=== PATIENT | female | born 1945 | race Caucasian/White ===

== ENCOUNTER 2016-12-02 08:30 | Outpatient (CLI) | payer MEDICARE | END 2016-12-02 08:31 | disposition home or self-care (01) | DX: E78.2 Mixed hyperlipidemia (principal) ==

== ENCOUNTER 2017-05-26 07:13 | Outpatient (CLI) | payer MEDICARE ==
--- NOTE | 2017-05-27 12:56 | Mammography Report ---
DIGITAL SCREENING MAMMOGRAM: 05/26/2017 CLINICAL INDICATION: A 71-year-old with family history of breast cancer, history of benign cyst exci roney for screening. COMPARISON: 04/2016, 03/2015, 08/2013, 02/2012 TECHNIQUE: Routine CC and MLO projections were obtained of the breasts as well as bilateral laterall y exaggerated craniocaudal views. FINDINGS: The breasts demonstrate heterogeneously dense fibroglandular parenchyma bilaterally. Punc campos, typically benign calcifications are present. Postoperative changes in the left breast are stab le. No suspicious masses, clustered microcalcifications, or regions of architectural distortion are identified. IMPRESSION: BENIGN FINDINGS. RECOMMENDATION: Routine annual screening unless otherwise clinically indicated. BIRADS CATEGORY 2 - BENIGN FINDINGS. STANDARD QUALIFYING STATEMENTS 1. This examination was reviewed with the aid of Computer-Aided Detection (CAD). 2. A negative or benign imaging report should not delay biopsy if clinically suspicious findings are present. Consider surgical consultation if warranted. More than 5% of cancers are not identified by i maging. 3. Dense breasts may obscure an underlying neoplasm. JOB #: [id number] EXT JOB #:[id number]
== END 2017-05-26 07:14 | disposition home or self-care (01) ==
LOC: DI 07:13
PROVIDERS: ATTEND Physician Assistant Medical
DX: Z12.31 Encounter for screening mammogram for malignant neoplasm of breast (principal); Z80.3 Family history of malignant neoplasm of breast
CPT/HCPCS: 77067

== ENCOUNTER 2017-09-13 08:24 | Outpatient (CLI) | payer MEDICARE | END 2017-09-13 08:25 | disposition critical access hospital (66) | LOC: EMS 08:24 | PROVIDERS: ATTEND Surgery | DX: R55 Syncope and collapse (principal) | CPT/HCPCS: A0425; A0429 ==

== ENCOUNTER 2017-09-13 08:40 | Emergency (ER) | payer MEDICARE ==
--- NOTE | 2017-09-13 09:31 | ED Physician Documentation ---
PD HPI SYNCOPE - Stated complaint Stated Complaint: SYNCOPE - Chief complaint Chief Complaint: General - History obtained from History obtained from: Patient - History of Present Illness Witnessed: Unwitnessed Timing - onset: Today Duration: Seconds Preceding symptoms: Light headed, Generalized weakness Contributing factors: Just stood up Injury occurred: None Similar symptoms before: No diagnosis Recently seen: Not recently seen - Additional information Additional information: Previously healthy 72-year-old female took some Aleve p.m. last night when she went to bed and she got up this morning To go to the bathroom and she felt lightheaded dizzy and had a syncopal episode in the bathroom. She called 911 and they asked her to go to her open her door and when she went to do this she had a second syncopal episode. She did not injure herself in either episode. She did not feel ill this morning when she awoke she has had similar episodes in the mornings without syncope but with some lightheadedness. She usually drinks water and tea. Review of Systems Constitutional: reports: Fatigue. denies: Fever, Chills Eyes: denies: Decreased vision Ears: denies: Ear pain Nose: denies: Rhinorrhea / runny nose, Congestion Throat: denies: Sore throat Cardiac: denies: Chest pain / pressure, Palpitations Respiratory: denies: Dyspnea, Cough GI: denies: Abdominal Pain, Nausea, Vomiting, Constipation, Diarrhea : denies: Dysuria, Frequency Skin: denies: Rash Musculoskeletal: denies: Neck pain, Back pain, Extremity pain Neurologic: reports: Syncope. denies: Generalized weakness, Focal weakness, Numbness PD PAST MEDICAL HISTORY - Past Medical History Cardiovascular: High cholesterol Neuro: None Endocrine/Autoimmune: None Psych: None Musculoskeletal: Osteoarthritis - Past Surgical History Ortho: Hip replacement HEENT: Cataracts - Present Medications Home Medications: Ambulatory Orders Medication Instructions Recorded Confirmed Atorvastatin Calcium [Lipitor] 20 mg PO DAILY 10/29/13 09/13/17 - Allergies Allergies/Adverse Reactions: Allergies Allergy/AdvReac Type Severity Reaction Status Date / Time No Known Drug Allergies Allergy Verified 09/13/17 08:45 - Social History Does the pt smoke?: No Smoking Status: Never smoker Does the pt drink ETOH?: Yes Does the pt have substance abuse?: No - POLST Patient has POLST: No PD ED PE NORMAL - Vitals Vital signs reviewed: Yes (Diastolic hypertension) - General General: Alert and oriented X 3, No acute distress, Well developed/nourished - HEENT HEENT: Atraumatic, PERRL, EOMI, Moist mucous membranes - Neck Neck: Supple, no meningeal sign, No bony TTP - Cardiac Cardiac: RRR, No murmur - Respiratory Respiratory: No respiratory distress, Clear bilaterally - Abdomen Abdomen: Soft, Non tender - Back Back: No CVA TTP, No spinal TTP - Derm Derm: Normal color, Warm and dry, No rash - Extremities Extremities: No deformity, No edema - Neuro Neuro: No motor deficit, No sensory deficit Eye Opening: Spontaneous Motor: Obeys Commands Verbal: Oriented GCS Score: 15 - Psych Psych: Normal mood, Normal affect Results - Vitals Vitals: Vital Signs - 24 hr 09/13/17 09/13/17 08:40 11:47 Temperature 35.3 C L Heart Rate 74 86 Respiratory 16 15 Rate Blood Pressure 105/88 H 145/82 H O2 Saturation 100 145 H Oxygen O2 Source [] Room air O2 Source [] Room air O2 Source Room air - EKG (time done) 0854 Rate: Rate (enter#) (62) Rhythm: NSR Other comments: Other comments (early transition) Compare to prior EKG: Old EKG unavailable Computer interpretation: Agree with computer - Labs Labs: Laboratory Tests 09/13/17 09/13/17 09/13/17 10:20 10:20 10:20 WBC 8.9 RBC 4.19 L Hgb 13.5 Hct 39.0 MCV 92.9 MCH 32.3 H MCHC 34.7 RDW 12.6 Plt Count 280 MPV 6.9 L Neut # 7.3 H Lymph # 1.0 L Harford # 0.4 Eos # 0.1 Baso # 0.0 Absolute Nucleated RBC 0.00 Nucleated RBC % 0.0 Sodium 135 Potassium 4.3 Chloride 98 L Carbon Dioxide 27 Anion Gap 10.0 BUN 18 Creatinine 0.7 Estimated GFR (MDRD) 82 L Glucose 133 H Calcium 9.5 Total Bilirubin 1.8 H AST 28 ALT 26 Alkaline Phosphatase 49 Troponin I < 0.04 Total Protein 6.8 Albumin 4.3 Globulin 2.5 Albumin/Globulin Ratio 1.7 Lipase 28 Urine Color Urine Clarity Urine pH Ur Specific Rea Urine Protein Urine Glucose (UA) Urine Ketones Urine Occult Blood Urine Nitrite Urine Bilirubin Urine Urobilinogen Ur Leukocyte Esterase Urine RBC Urine WBC Ur Squamous Epith Cells Urine Bacteria Ur Microscopic Review Urine Culture Comments 09/13/17 11:40 WBC RBC Hgb Hct MCV MCH MCHC RDW Plt Count MPV Neut # Lymph # Harford # Eos # Baso # Absolute Nucleated RBC Nucleated RBC % Sodium Potassium Chloride Carbon Dioxide Anion Gap BUN Creatinine Estimated GFR (MDRD) Glucose Calcium Total Bilirubin AST ALT Alkaline Phosphatase Troponin I Total Protein Albumin Globulin Albumin/Globulin Ratio Lipase Urine Color YELLOW Urine Clarity CLEAR Urine pH 7.0 Ur Specific Rea 1.010 Urine Protein NEGATIVE Urine Glucose (UA) NEGATIVE Urine Ketones NEGATIVE Urine Occult Blood TRACE-INTA Urine Nitrite NEGATIVE Urine Bilirubin NEGATIVE Urine Urobilinogen 0.2 (NORMAL) Ur Leukocyte Esterase TRACE H Urine RBC 0-5 Urine WBC 0-3 Ur Squamous Epith Cells MOD Squamous H Urine Bacteria Rare Ur Microscopic Review INDICATED Urine Culture Comments NOT INDICATED Procedures - IVC sono (time) 0935 Bedside IVC sono: IVC measures (cm) (1.12), IVC collapsed c insp (cm) (0.32), Dehydration (mild est 1 liter) PD MEDICAL DECISION MAKING - ED course Complexity details: reviewed results, re-evaluated patient, considered differential, d/w patient ED course: 72-year-old female with lightheaded dizziness with syncope 2 today is found to be dehydrated. She does recall that history of this frequently happening to her without syncope but with morning lightheadedness. She drinks about 4 glasses of water per day and a bit of tea as well. She is not drinking of fluids we discussed her water intake and having a glass of water at her bedside to drink before she gets out of bed in the morning. Here in the emergency department today she is administered a liter of saline feels much improved and normal. Laboratory studies are unremarkable. Departure - Departure Disposition: 01 Home, Self Care Clinical Impression: Dehydration Condition: Stable Instructions: ED Dehydration Follow-Up: Radha Deal PA-C [Primary Care Provider] -
[2017-09-13] MEDS ORDERED: SODIUM CHLORIDE 0.9% 1,000 ML IV ONE (09:40)
[2017-09-13 10:35] LABS: BASOPHILS % (AUTO) 0.2 %; EOSINOPHILS # (AUTO) 0.1 10^3/uL (0.0-0.7); EOSINOPHILS % (AUTO) 1.4 %; HGB - HEMOGLOBIN 13.5 g/dL (12.0-16.0); LYMPHOCYTES % (AUTO) 11.5 %; MEAN CORPUSCULAR HEMOGLOBIN 32.3 pg (27.0-31.0); MEAN CORPUSCULAR HGB CONC 34.7 g/dL (32.0-36.0); MEAN CORPUSCULAR VOLUME 92.9 fL (81.0-99.0); MEAN PLATELET VOLUME 6.9 fL (7.9-10.8); MONOCYTES # (AUTO) 0.4 10^3/uL (0.0-1.0); MONOCYTES % (AUTO) 4.4 %; NEUTROPHILS # (AUTO) 7.3 10^3/uL (1.5-6.6); NEUTROPHILS % (AUTO) 82.5 %; PLT - PLATELET COUNT 280 10^3/uL (130-450); RED BLOOD COUNT 4.19 10^6/uL (4.20-5.40); RED CELL DISTRIBUTION WIDTH 12.6 % (12.0-15.0); WHITE BLOOD COUNT 8.9 x10^3/uL (4.8-10.8)
[2017-09-13 11:19] LABS: ALBUMIN 4.3 g/dL (3.2-5.5); ALBUMIN/GLOBULIN RATIO 1.7 (1.0-2.2); BILIRUBIN,TOTAL 1.8 mg/dL (0.2-1.0); CALCIUM 9.5 mg/dL (8.5-10.3); CREATININE 0.7 mg/dL (0.4-1.0); TOTAL PROTEIN 6.8 g/dL (6.7-8.2)
[2017-09-13 11:53] LABS: BILIRUBIN,URINE NEGATIVE (NEGATIVE); GLUCOSE, URINE (UA) NEGATIVE (NEGATIVE); KETONES,URINE (UA) NEGATIVE (NEGATIVE); LEUKOCYTE ESTERASE, URINE TRACE (NEGATIVE); NITRITE,URINE NEGATIVE (NEGATIVE); OCCULT BLOOD,URINE TRACE-INTA (NEGATIVE); PROTEIN,URINE NEGATIVE (NEGATIVE); UROBILINOGEN,URINE 0.2 (NORMAL) E.U./dL (NORMAL)
[2017-09-13 11:57] LABS: CLARITY,URINE CLEAR (CLEAR)
[2017-09-13 12:16] LABS: BACTERIA,URINE Rare /HPF (None Seen); RBC,URINE 0-5 /HPF (0-5); SQUAMOUS EPITHELIAL CELL,UR MOD Squamous (<= Few)
[2017-09-13 12:57] VITALS: BP 150/76
== END 2017-09-13 12:57 | disposition home or self-care (01) ==
LOC: EDUNIT# → ED 08:40
DX: E86.0 Dehydration (principal); E78.00 Pure hypercholesterolemia, unspecified; M19.90 Unspecified osteoarthritis, unspecified site
CPT/HCPCS: 36415; 80053; 81001; 81003; 83690; 84484; 85025; 87086; 93005; 99284

== ENCOUNTER 2017-09-22 12:54 | Outpatient (CLI) | payer MEDICARE | END 2017-09-22 12:55 | disposition home or self-care (01) | LOC: DI 12:54 | PROVIDERS: ATTEND Physician Assistant Medical | DX: R55 Syncope and collapse (principal); I77.810 Thoracic aortic ectasia | CPT/HCPCS: 93306 ==

== ENCOUNTER 2018-06-12 09:04 | Outpatient (CLI) | payer MEDICARE ==
--- NOTE | 2018-06-14 10:25 | Mammography Report ---
Reason: BILAT SCREEN w AUREA Procedure Date: 06/12/2018 Accession Number: [id number] / [id number] Procedure: AJ - Screening Mammo w/Aurea CPT Code: FULL RESULT: EXAM: Screening Mammo w/Aurea DATE: 06/12/2018 9:38 AM CLINICAL HISTORY: BILAT SCREEN w AUREA TECHNIQUE: Bilateral CC and MLO breast views COMPARISON: Mammogram 05/26/2017 FINDINGS: The breast parenchyma is extremely dense, which may limit the sensitivity of mammography. There are benign-appearing calcifications. No dominant mass, architectural distortion, or concerning cluster of microcalcifications is seen. IMPRESSION: BI-RADS Category 2. Benign findings. Recommend annual screening mammogram. STANDARD QUALIFYING STATEMENTS: 1. This examination was not reviewed with the aid of Computer-Aided Detection (CAD). 2. A negative or benign imaging report should not delay biopsy if clinically suspicious findings are present. Consider surgical consultation if warrented. More than 5% of cancers are not identified by imaging. 3. Dense breasts may obscure an underlying neoplasm. 4. This examination was reviewed with the aid of 3D breast imaging (tomosynthesis).
== END 2018-06-12 09:05 | disposition home or self-care (01) ==
LOC: DI 09:04
DX: Z12.31 Encounter for screening mammogram for malignant neoplasm of breast (principal)
CPT/HCPCS: 77063; 77067

== ENCOUNTER 2018-07-04 08:40 | Outpatient (CLI) | payer MEDICARE ==
--- NOTE | 2018-07-04 17:44 | DEXA Report ---
Reason: BONE DISEASE Procedure Date: 07/04/2018 Accession Number: [id number] / [id number] Procedure: DEX - Dexa Spine and/or Hip CPT Code: FULL RESULT: EXAM: Dexa Spine and/or Hip DATE: 07/04/2018 9:06 AM CLINICAL HISTORY: BONE DISEASE TECHNIQUE: Dual energy x-ray absorptiometry (DXA) was performed on a [employer] System. Regions measured are the AP Spine, femoral neck, and if needed forearm. COMPARISON: None. In accordance with the International Society for Clinical Densitometry (ISCD) guidelines, data from previous exams may be reanalyzed using current recommendations and techniques. This is done to allow a more accurate basis for comparison with the current study. FINDINGS: The data for the lumbar spine is as follows: BMD (g/cm/cm) T-SCORE Z-SCORE REGION L1 0.730 -3.3 -1.3 L2 0.702 -4.1 -2.1 L3 0.780 -3.5 -1.5 L4 0.799 -3.3 -1.3 TOTAL 0.756 -3.5 -1.5 NOTE: All evaluable vertebrae are used for classification The data for the hip is as follows: BMD (g/cm/cm) T-SCORE Z-SCORE REGION Neck 0.786 -1.8 0.3 TOTAL 0.621 -3.1 -1.1 NOTE: The femoral neck or total proximal femur, whichever is lowest, is used for classification. DXA RESULTS SUMMARY: Spine SCAN DATE AGE BMD CHANGE VS CHANGE VS PREVIOUS PREVIOUS % 07[birth year]04/2018 [age] 0.756 -0.063* -7.7* 05[birth year]06/2016 [age] 0[age]819 * Denotes significant change at the 95% confidence level. Denotes dissimilar scan types or analysis methods. DXA RESULTS SUMMARY: Hip SCAN DATE AGE BMD CHANGE VS CHANGE VS PREVIOUS PREVIOUS % [birth year]04/2018 73.0 0.621 0.038* 6.5* 05/06[birth year]2016 [age] 0.583 * Denotes significant change at the 95% confidence level. Denotes dissimilar scan types or analysis methods. IMPRESSION: THE WHO CLASSIFICATION BASED ON THE INTERNATIONAL REFERENCE STANDARD IS OSTEOPOROSIS. THE FRACTURE RISK IS HIGH. RECOMMENDATION: Patients with diagnosis of osteoporosis or osteopenia should have regular bone mineral density assessment. For those eligible for Medicare, routine testing is allowed once every 2 years. Testing frequency can be increased for patients who have rapidly progressing disease or for those who are receiving medical therapy to restore bone mass. COMMENT: World Health Organization (WHO) definitions for osteoporosis and osteopenia: NORMAL BMD: T-score at -1.0 or higher, fracture risk is low OSTEOPENIA BMD: T-score between -1.0 and -2.5, fracture risk is increased. OSTEOPOROSIS BMD: T-score at -2.5 or lower, fracture risk is high. National Osteoporosis Foundation recommends: 1. Obtain adequate dietary calcium (at least 1200 mg per day) and vitamin D (400-800 international units per day). 2. Participate, as appropriate, in regular weightbearing and muscle-strengthening exercise. 3. Avoid tobacco use and reduce alcohol and caffeine intake. 4. For more detailed information see the website at www.NOF.org.
== END 2018-07-04 08:41 | disposition home or self-care (01) ==
LOC: DI 08:40
PROVIDERS: ATTEND Physician Assistant Medical
DX: M81.0 Age-related osteoporosis without current pathological fracture (principal)
CPT/HCPCS: 77080

== ENCOUNTER 2018-10-12 11:02 | Outpatient (CLI) | payer MEDICARE | END 2018-10-12 11:03 | disposition home or self-care (01) | LOC: LAB.F 11:02 | PROVIDERS: ATTEND Physician Assistant Medical | DX: L67.9 Hair color and hair shaft abnormality, unspecified (principal) | CPT/HCPCS: 36415; 84443 ==

== ENCOUNTER 2018-12-07 08:00 | Outpatient (CLI) | payer MEDICARE | END 2018-12-07 23:59 | disposition home or self-care (01) | LOC: LAB.R 08:00 | PROVIDERS: ATTEND Orthopaedic Surgery | DX: M16.11 Unilateral primary osteoarthritis, right hip (principal) | CPT/HCPCS: 87640 ==

== ENCOUNTER 2018-12-07 08:21 | Outpatient (CLI) | payer MEDICARE ==
[2018-12-07 10:59] LABS: ALBUMIN 4.2 g/dL (3.2-5.5); ALBUMIN/GLOBULIN RATIO 1.6 (1.0-2.2); ALKALINE PHOSPHATASE 50 IU/L (42-121); ALT ALANINE AMINOTRANSFERASE 23 IU/L (10-60); AST ASPARTATE AMINOTRANSFERASE 28 IU/L (10-42); BILIRUBIN,TOTAL 1.6 mg/dL (0.2-1.0); BUN - BLOOD UREA NITROGEN 17 mg/dL (6-20); CALCIUM 9.3 mg/dL (8.5-10.3); CARBON DIOXIDE - CO2 27 mmol/L (21-32); CHLORIDE 97 mmol/L (101-111); CHOL/HDL RATIO 2.9 (<4.4); CHOLESTEROL 233 mg/dL; CREATININE 0.6 mg/dL (0.4-1.0); GFR - MDRD 97 (>89); GLUCOSE 107 mg/dL (70-100); HDL CHOLESTEROL 80 mg/dL; LDL CHOLESTEROL,CALCULATED 143 mg/dL; LDL/HDL RATIO 1.8 (<4.4); SODIUM 134 mmol/L (135-145); TOTAL PROTEIN 6.9 g/dL (6.7-8.2); VLDL CHOLESTEROL 10 mg/dL
[2018-12-07 11:08] LABS: THYROID STIMULATING HORMONE 1.8 uIU/mL (0.34-5.60)
[2018-12-07 11:13] LABS: FERRITIN 87.3 ng/mL (11.0-306.8)
[2018-12-07 11:30] LABS: BASOPHILS # (AUTO) 0.1 10^3/uL (0.0-0.1); EOSINOPHILS # (AUTO) 0.2 10^3/uL (0.0-0.7); EOSINOPHILS % (AUTO) 3.6 %; LYMPHOCYTES # (AUTO) 1.7 10^3/uL (1.5-3.5); MEAN CORPUSCULAR HEMOGLOBIN 31.6 pg (27.0-31.0); MEAN CORPUSCULAR HGB CONC 33.9 g/dL (32.0-36.0); MEAN CORPUSCULAR VOLUME 93.3 fL (81.0-99.0); MEAN PLATELET VOLUME 7.5 fL (7.9-10.8); MONOCYTES # (AUTO) 0.5 10^3/uL (0.0-1.0); MONOCYTES % (AUTO) 8.6 %; NEUTROPHILS # (AUTO) 3.1 10^3/uL (1.5-6.6); NEUTROPHILS % (AUTO) 55.8 %; PLT - PLATELET COUNT 290 10^3/uL (130-450); RED BLOOD COUNT 4.11 10^6/uL (4.20-5.40); RED CELL DISTRIBUTION WIDTH 12.9 % (12.0-15.0); WHITE BLOOD COUNT 5.6 x10^3/uL (4.8-10.8)
== END 2018-12-07 08:22 | disposition home or self-care (01) ==
LOC: LAB.F 08:21
PROVIDERS: ATTEND Physician Assistant Medical
DX: E78.2 Mixed hyperlipidemia (principal); D50.9 Iron deficiency anemia, unspecified; L67.9 Hair color and hair shaft abnormality, unspecified; M16.11 Unilateral primary osteoarthritis, right hip
CPT/HCPCS: 36415; 80053; 80061; 82728; 83721; 84443; 85025; 87640

== ENCOUNTER 2018-12-26 07:21 | Inpatient (IN) | payer MEDICARE ==
[~2018-12-26 07:21] MED LIST: ceFAZolin 2 GM/50 ML 2 GM/50 ML BAG IV ONE
[2018-12-26] MEDS ORDERED: LACTATED RINGERS 1,000 ML IV ONE ×2 (07:26→09:45)
[2018-12-26] MEDS ORDERED: SODIUM CHLORIDE 0.9% 50 ML ONE (07:46)
[2018-12-26] MEDS ORDERED: ROPIVACAINE 0.5% PF 20 ML AMPULE ONE (07:46)
[2018-12-26] MEDS ORDERED: EPINEPHrine 1 MG/ML AMP ONE (07:46)
[2018-12-26] MEDS ORDERED: BUPIVACAINE 0.5%-EPI 1:200000 PF 30 ML VIAL ONE (07:46)
--- NOTE | 2018-12-26 08:05 | ANESTHESIA ---
Pre-Anesthesia VS, & Labs - Diagnosis right hip osteo arthritis - Procedure right total hip arthroplasty Vital Signs: Temp Pulse Resp BP Pulse Ox 37 C 75 18 148/88 H 98 12/26/18 07:27 12/26/18 07:27 12/26/18 07:27 12/26/18 07:27 12/26/18 07:27 Height 5 ft 4 in Weight (kg) 25.12 kg Body Mass Index 21.4 - NPO >8 hours - Is Patient ?: Not Applicable Home Medications and Allergies Home Medications: Ambulatory Orders Alendronate Sodium [Binosto] 70 mg PO OAW 12/07/18 Aleve Pm 1 tab PO QPM PRN 12/07/18 Calcium Carbonate [Calcium] 600 mg PO DAILY 12/07/18 Cholecalciferol (Vitamin D3) [Vitamin D] 2,000 unit PO DAILY 12/07/18 L. Acidophilus/L. Rhamnosus [Probiotic 15 Billion Cell Cap] 1 each PO DAILY 12/07/18 Atorvastatin Calcium [Lipitor] 10 mg PO DAILY 10/29/13 Alendronate Sodium [Binosto] 70 mg PO OAW 12/07/18 Aleve Pm 1 tab PO QPM PRN 12/07/18 Calcium Carbonate [Calcium] 600 mg PO DAILY 12/07/18 Cholecalciferol (Vitamin D3) [Vitamin D] 2,000 unit PO DAILY 12/07/18 L. Acidophilus/L. Rhamnosus [Probiotic 15 Billion Cell Cap] 1 each PO DAILY 12/07/18 Allergies/Adverse Reactions: Allergies Allergy/AdvReac Type Severity Reaction Status Date / Time No Known Drug Allergies Allergy Verified 09/13/17 08:45 Anes History & Medical History - Anesthetic History Anesthesia Complications: reports: No previous complications Family history of Anesthesia Complications: Denies Family history of Malignant Hyperthermia: Denies - Medical History Cardiovascular: reports: High cholesterol Pulmonary: reports: None Gastrointestinal: reports: None Urinary: reports: None Musculoskeletal: reports: Osteoarthritis Endocrine/Autoimmune: reports: None Skin: reports: None Smoking Status: Never smoker - Surgical History Eyes Ears Nose Throat (EENT): Cataracts Gynecologic: Other Orthopedic: Hip replacement Exam General: Alert, Oriented x3, Cooperative, No acute distress Dental: Partials Lower Mouth Openin Fingerbreadth Neck Mobility: Normal Mallampati classification: II Thyromental Distance: 4-6 cm Respiratory: Lungs clear, Normal breath sounds, No respiratory distress, No accessory muscle use Cardiovascular: Regular rate, Normal S1, Normal S2, No murmurs Mental/Cognitive Status: Alert/Oriented X3, Normal for patient Plan Anesthesia Type: General Consent for Procedure(s) Verified and Reviewed: Yes Code Status: Attempt Resuscitation ASA classification: 2-Mild systemic disease Is this case an emergency?: No
[2018-12-26] MEDS ORDERED: KETOROLAC 15 MG/ML VIAL ONE (08:26)
[2018-12-26] MEDS ORDERED: MORPHINE PF 5 MG/10 ML AMP SUBQ ONE ×2 (09:41→10:00)
[2018-12-26] MEDS ORDERED: ROPIVACAINE 0.2% PF 20 ML AMPULE SUBQ ONE ×2 (09:41→10:00)
[2018-12-26] MEDS ORDERED: KETOROLAC 15 MG/ML VIAL IM ONE ×2 (09:42→10:00)
[2018-12-26] MEDS ORDERED: EPINEPHrine 1 MG/ML AMP IVP ONE ×2 (09:43→10:00)
[2018-12-26] MEDS ORDERED: BUPIVACAINE 0.5%-EPI 1:200000 PF 10 ML VIAL SUBQ ONE ×2 (09:43→10:30)
[2018-12-26] MEDS ORDERED: SUGAMMADEX 200 MG/2 ML VIAL IVP ONE (10:38)
--- NOTE | 2018-12-26 10:44 | OPERATIVE REPORT ---
Operative Report - General Admit Date: 12/26/18 Procedure Date: 12/26/18 Planned Procedure: right total hip Pre-Op Diagnosis: djd right hip Procedure Performed: right total hip arthroplasty Post Op Diagnosis: same - Procedure Note Primary Surgeon: varsha Anesthesia Provider: : Silvana Anesthesia Technique: General ET tube Estimated Blood Loss (mL): 250
[2018-12-26] MEDS ORDERED: PROCHLORPERAZINE 10 MG/2 ML VIAL IVP PRN (10:45)
[2018-12-26] MEDS ORDERED: HYDROmorphone 0.5 MG/0.5 ML SYRINGE IVP PRN (10:45)
[2018-12-26] MEDS ORDERED: oxyCODONE 5 MG TABLET PO PRN (10:45)
[2018-12-26] MEDS ORDERED: SODIUM CHLORIDE FLUSH 0.9% 10 ML SYRINGE IVP PRN (10:45)
[2018-12-26] MEDS ORDERED: BISACODYL 10 MG SUPP PR PRN (10:45)
[2018-12-26] MEDS ORDERED: ONDANSETRON 4 MG/2 ML VIAL IVP PRN (10:45)
[2018-12-26] MEDS ORDERED: fentaNYL 100 MCG/2 ML VIAL IVP ONE (10:46)
[2018-12-26] MEDS ORDERED: TRANEXAMIC ACID 1,000 MG/10 ML VIAL IV ONE (10:46)
[2018-12-26] MEDS ORDERED: ePHEDrine 50 MG/ML VIAL IVP ONE (10:46)
[2018-12-26] MEDS ORDERED: ROCURONIUM 50 MG/5 ML VIAL IVP ONE (10:46)
[2018-12-26] MEDS ORDERED: ACETAMINOPHEN 1,000 MG/100 ML 100 ML IV ONE (10:46)
[2018-12-26] MEDS ORDERED: PROPOFOL 200 MG/20 ML VIAL IVP ONE (10:46)
[2018-12-26] MEDS ORDERED: MORPHINE PF 5 MG/10 ML AMP EP ONE (10:46)
[2018-12-26] MEDS ORDERED: LIDOCAINE-MPF 2% 5 ML VIAL IM ONE (10:46)
[2018-12-26] MEDS ORDERED: VECURONIUM 10 MG VIAL IVP ONE (10:46)
[2018-12-26] MEDS ORDERED: PHENYLEPHRINE 50 MG/5 ML VIAL IV ONE (10:46)
[2018-12-26] MEDS ORDERED: ONDANSETRON 4 MG/2 ML VIAL ONE (10:56)
--- NOTE | 2018-12-26 11:20 | XRAY Report ---
Reason: post op Procedure Date: 12/26/2018 Accession Number: [id number] / [id number] Procedure: XR - Hip w/Pelvis 2-3V RT CPT Code: FULL RESULT: EXAM: RIGHT HIP RADIOGRAPHY EXAM DATE: 12/26/2018 10:46 AM. CLINICAL HISTORY: Postop right total hip replacement. COMPARISON: HIP 2 VIEW RT 11/13/2018 3:35 PM. TECHNIQUE: 2 views. FINDINGS: The patient is status post bilateral hip arthroplasty, interval placement of the right hip arthroplasty with overlying soft tissue gas, immediate postoperative period. There is no evidence of hardware failure. No fracture or dislocation. IMPRESSION: Interval right total hip arthroplasty. RADIA
[2018-12-26] MEDS: LACTATED RINGERS 1,000 ML IV SCH ×2 (11:58→22:18)
--- NOTE | 2018-12-26 13:22 | OPERATIVE REPORT ---
DATE OF SERVICE: 12/26/2018 Physician: Kasey Dang MD PREOPERATIVE DIAGNOSIS: Right hip osteoarthritis. POSTOPERATIVE DIAGNOSIS: Right hip osteoarthritis. PROCEDURE PERFORMED: Total hip replacement arthroplasty. ATTENDING SURGEON: Kasey Dang MD ANESTHESIA: General by Dr. Manpreet Reilly. INDICATIONS FOR SURGERY: Patient is a 73-year-old female with increasing problems involving right hi p osteoarthritis. She has had a prior successful left total hip arthroplasty and presents now for thomas rgery on her right hip, having failed nonoperative treatment. FINDINGS AT SURGERY: Patient's bone was found to be osteoporotic, her joint severely worn with pale yellow synovial fluid in excess, osteophytes, eburnated the femoral head, and bare areas in the aceta bulum. OPERATIVE PROCEDURE: Patient was admitted and taken into the operating room, placed in the supine po sition on the OR table and given a general anesthetic, after which she was carefully positioned for a nterior approach total hip arthroplasty, which involved prepping both lower extremities free and drap ing appropriately. Once this was accomplished, a surgical timeout was undertaken and verified. The approach was anterior with an 8 cm incision directed off the lateral aspect of the anterior-super ior iliac spine and then dissecting down to the tensor fascia, incising its fascia. And then with th e muscle retracted laterally, the interval was developed down to the capsule of the hip and also retr acting the rectus femoris medially. Capsule tissue was excised anteriorly to expose the femoral neck where retractors were positioned for enhanced exposure. More of the capsule and more of the labral tissues were removed to expose the femoral neck for osteotomy, and a napkin ring osteotomy was perfor med to gain exposure and to be able to remove the femoral head, which was removed with a corkscrew an d inspected and sized for later reaming. The retractors were positioned around the acetabulum and se quential reaming was taken up to 49 mm, so that a 50 mm cup could be inserted. These reamings were s equential and seated and 50 seemed to be a very appropriate size for the small size of her acetabulum . This cup was well seated, but a single 25 mm screw was advanced into the pelvis for security and a G7 acetabular liner of neutral size 36 mm head diameter was inserted. Following this, attention was directed to the femur where releases were required to gain exposure and allow the femur to be drawn into a position for broaching. This involved also dropping the foot of the table. Once this was acc omplished, and exposure was adequate, the broaching was taken up to a size 12 stem, upon which trial reduction was performed and very adequate with a high offset neck and a +3 stem neck length. This re produced equal limb lengths in the lower extremities. The stability was excellent in flexion and int ernal rotation and in extension and external rotation. There was no impingement and soft tissue tens ion was restored. The implantable components were brought into the field and the stem was then seate d and was very snug and the +3, 36 mm head size was inserted and reduced into the acetabulum and once gain was checked for stability, limb lengths and appropriate this and it was very satisfactory. The wound was irrigated thoroughly. Deep closure was with #1 Vicryl running the fascia of the tensor muscle, followed by interrupted 0 and 2-0 Vicryl subcutaneous and 2-0 Monocryl closure of skin. Rafita rile dressings were applied and an ABD pad. The patient was taken to the recovery room in stable con dition. ESTIMATED BLOOD LOSS PROCEDURE: 250 mL COMPLICATIONS: None. COUNTS: Sponge and needle counts correct procedure. TD: 12/26/2018 13:10
[2018-12-26] MEDS: ceFAZolin 2 GM in SODIUM CHLORIDE 0.9% MINIBAG 100 ML IV SCH ×2 (16:10→23:52)
[2018-12-26] MEDS: ACETAMINOPHEN 325 MG TABLET PO PRN (16:17)
[2018-12-26] MEDS: ASPIRIN 325 MG TABLET PO SCH (16:22)
[2018-12-26] MEDS: SODIUM CHLORIDE FLUSH 0.9% 10 ML SYRINGE IVP SCH ×2 (18:01→23:53)
[2018-12-27] MEDS ORDERED: SODIUM CHLORIDE 0.9% 500 ML IV ONE (01:22)
[2018-12-27] MEDS: ACETAMINOPHEN 325 MG TABLET PO PRN ×2 (02:02→20:36)
[2018-12-27 05:40] LABS: CALCIUM 8.1 mg/dL (8.5-10.3); CREATININE 0.5 mg/dL (0.4-1.0)
[2018-12-27 05:41] LABS: HGB - HEMOGLOBIN 9.3 g/dL (12.0-16.0)
--- NOTE | 2018-12-27 08:10 | PROVIDER PROGRESS NOTE ---
Subjective - General Admit Date: 12/26/18 Procedure Date: 12/26/18 Post Op Days: 1 Procedure Performed: right Total Hip Replacement - Review of Systems Wound/Incisions: positive: Dressing dry and intact Genitourinary: positive: Frequency Musculoskeletal: positive: Joint pain Psychiatric: positive: No symptoms Objective - Patient Data Reviewed Vital Signs: Yes Vital Signs: Vital Signs x48h Temp Pulse Resp BP Pulse Ox 12/27/18 07:55 37 C 91 18 124/61 97 12/27/18 06:29 36.8 C 92 18 120/62 95 12/27/18 02:30 36.9 C 92 20 109/66 95 12/27/18 02:18 102 H 123/53 L 12/27/18 02:05 89 20 122/49 L 12/27/18 01:24 73 20 83/46 L 12/27/18 01:12 36.9 C 75 20 78/48 L 98 Weight: Weight 12/25/18 12/26/18 12/27/18 23:59 23:59 23:59 Weight (kg) 25.12 kg Intake & Output: Intake and Output Totals x24h 12/25/18 12/26/18 12/27/18 23:59 23:59 23:59 Intake Total 2850 1450 Output Total 600 650 Balance 2250 800 - Lab Results Lab Results: 12/27/18 05:15 12/27/18 05:15 Other Lab Results: Lab Results x24hrs 12/27/18 12/27/18 12/26/18 Range/Units 05:15 05:15 09:09 Hgb 9.3 L (12.0-16.0) g/dL Hct 27.5 L (37.0-47.0) % Sodium 130 L (135-145) mmol/L Potassium 3.8 (3.5-5.0) mmol/L Chloride 97 L (101-111) mmol/L Carbon Dioxide 26 (21-32) mmol/L Anion Gap 7.0 (6-13) BUN 8 (6-20) mg/dL Creatinine 0.5 (0.4-1.0) mg/dL Estimated GFR (MDRD) 120 (>89) Glucose 137 H (70-100) mg/dL Calcium 8.1 L (8.5-10.3) mg/dL Blood Type O POSITIVE Antibody Screen NEGATIVE - Imaging Results Radiology Imaging: positive: EMP read indepedently - Current Medications Current Medications: Current Medications Generic Name Dose Route Start Last Admin Trade Name Joann PRN Reason Stop Dose Admin Acetaminophen 650 - 975 mg 12/26/18 10:45 12/27/18 02:02 Tylenol PO 650 mg Q4HR PRN Administration PAIN Aspirin 325 mg 12/26/18 17:00 12/26/18 16:22 Chris PO 325 mg BIDWM ELIDA Administration Lactated Ringer's 1,000 mls @ 100 mls/hr 12/26/18 11:00 12/27/18 06:45 Lr IV 100 mls/hr .Q10H ELIDA Infusion Sodium Chloride 10 ml 12/26/18 17:00 12/26/18 23:53 Normal Saline Flush 0.9% IVP Not Given 0100,0900,1700 ELIDA - Physical Exam Wound/Incisions: positive: Dressing dry and intact Extremities: positive: Joint swelling Neurologic/Psychiatric: positive: Oriented x3 Impression/Plan - Problem List Problem List: POD #1 Pt is doing better. Had vasovagal event last night on toilet. Feels fine today. Will Decrease IV rate. ongoing PT
[2018-12-27] MEDS: SENNA 8.6 MG TABLET PO PRN (08:47)
[2018-12-27] MEDS: ASPIRIN 325 MG TABLET PO SCH ×2 (08:47→16:03)
[2018-12-27] MEDS: LACTATED RINGERS 1,000 ML IV SCH (08:47)
[2018-12-27] MEDS: SODIUM CHLORIDE FLUSH 0.9% 10 ML SYRINGE IVP SCH ×3 (12:17→16:04)
[2018-12-27] MEDS ORDERED: KETOROLAC 30 MG/ML VIAL IVP ONE (14:00)
[2018-12-28] MEDS: ACETAMINOPHEN 325 MG TABLET PO PRN ×5 (02:58→22:46)
--- NOTE | 2018-12-28 07:33 | PROVIDER PROGRESS NOTE ---
Subjective - General Admit Date: 12/26/18 Procedure Date: 12/26/18 Post Op Days: 2 Procedure Performed: right Total Hip Replacement - Review of Systems Wound/Incisions: positive: Dressing dry and intact Musculoskeletal: positive: Joint pain Psychiatric: positive: No symptoms Objective - Patient Data Reviewed Vital Signs: Yes Vital Signs: Vital Signs x48h Temp Pulse Resp BP Pulse Ox 12/28/18 05:00 37.2 C 88 16 107/61 98 12/28/18 00:09 37 C 46 L 16 116/60 94 Weight: Weight 12/26/18 12/27/18 12/28/18 23:59 23:59 23:59 Weight (kg) 25.12 kg Intake & Output: Intake and Output Totals x24h 12/26/18 12/27/18 12/28/18 23:59 23:59 23:59 Intake Total 2850 2723.333 350 Output Total 600 1975 700 Balance 2250 748.333 -350 - Lab Results Lab Results: 12/28/18 07:42 12/27/18 05:15 - Current Medications Current Medications: Current Medications Generic Name Dose Route Start Last Admin Trade Name Freq PRN Reason Stop Dose Admin Acetaminophen 650 - 975 mg 12/26/18 10:45 12/28/18 02:58 Tylenol PO 650 mg Q4HR PRN Administration PAIN Aspirin 325 mg 12/26/18 17:00 12/27/18 16:03 Chris PO 325 mg BIDWM ELIDA Administration Senna 17.2 mg 12/26/18 10:45 12/27/18 08:47 Senokot PO 17.2 mg Q12H PRN Administration Constipation Sodium Chloride 10 ml 12/26/18 17:00 12/27/18 16:04 Normal Saline Flush 0.9% IVP 10 ml 0100,0900,1700 ELIDA Administration - Physical Exam Wound/Incisions: positive: Dressing dry and intact General Appearance: positive: No acute distress Extremities: positive: Joint swelling Neurologic/Psychiatric: positive: Oriented x3, CN's nml (2-12), Motor nml, Sensation nml, Mood/affect nml Impression/Plan - Problem List Problem List: POD #2 Pt is doing better. Decreasing pain. Cont. with PT. arrangments for home D//c
[2018-12-28] MEDS: ASPIRIN 325 MG TABLET PO SCH (07:37)
[2018-12-28] MEDS ORDERED: KETOROLAC 15 MG/ML VIAL IVP PRN (08:21)
[2018-12-28] MEDS: SODIUM CHLORIDE FLUSH 0.9% 10 ML SYRINGE IVP SCH ×2 (10:16→20:45)
[2018-12-28] MEDS: SENNA 8.6 MG TABLET PO SCH (10:16)
[2018-12-28] MEDS: POLYETHYLENE GLYCOL 3350 17 GM PACKET PO SCH (10:17)
[2018-12-28] MEDS: SENNA 8.6 MG TABLET PO PRN (10:18)
[2018-12-29] MEDS: SODIUM CHLORIDE FLUSH 0.9% 10 ML SYRINGE IVP SCH ×3 (01:15→18:23)
[2018-12-29] MEDS: ACETAMINOPHEN 325 MG TABLET PO PRN ×2 (03:28→10:56)
[2018-12-29] MEDS ORDERED: SODIUM CHLORIDE 0.9% 1,000 ML IV ONE ×2 (04:41)
[2018-12-29 04:42] LABS: BASOPHILS % (AUTO) 0.4 %; EOSINOPHILS % (AUTO) 0.7 %; HGB - HEMOGLOBIN 9.7 g/dL (12.0-16.0); LYMPHOCYTES # (AUTO) 0.8 10^3/uL (1.5-3.5); LYMPHOCYTES % (AUTO) 11.1 %; MEAN CORPUSCULAR HEMOGLOBIN 32.9 pg (27.0-31.0); MEAN CORPUSCULAR VOLUME 93.9 fL (81.0-99.0); MEAN PLATELET VOLUME 6.6 fL (7.9-10.8); MONOCYTES # (AUTO) 0.5 10^3/uL (0.0-1.0); MONOCYTES % (AUTO) 7.6 %; NEUTROPHILS # (AUTO) 5.5 10^3/uL (1.5-6.6); NEUTROPHILS % (AUTO) 80.2 %; PLT - PLATELET COUNT 229 10^3/uL (130-450); RED BLOOD COUNT 2.96 10^6/uL (4.20-5.40); RED CELL DISTRIBUTION WIDTH 12.9 % (12.0-15.0); WHITE BLOOD COUNT 6.9 x10^3/uL (4.8-10.8)
[2018-12-29 04:53] LABS: CALCIUM 8.5 mg/dL (8.5-10.3); CREATININE 0.6 mg/dL (0.4-1.0); PHOSPHORUS 2.2 mg/dL (2.5-4.6)
--- NOTE | 2018-12-29 05:04 | PROVIDER PROGRESS NOTE ---
Calender Let Off Operator Note - Calender Let Off Operator Note Calender Let Off Operator Note: Was asked to see patient by Dr Ledesma after she experienced 2 episodes of passing out while going to the bathroom. It is reported that this also happened a few days ago. The patient is fully awake at the moment and in no distress. Every time this has happened, her vitals stabilized in a short period of time following the incident. She denies chest pain, NAMRATA, abd pain, nausea, vomiting, fever or chills. She reports a similar episode following a previous surgery. Orthostatic blood pressures were positive with a SBP from 135 to 124 when going from laying to sitting. EKG done was unremarkable. BMP, CBC were normal. Patient is receiving 1L of normal saline bolus. Will reevaluate orthostatics later this morning. If significantly positive or if patient has another syncopal episode, will advise consideration for an echocardiogram.
--- NOTE | 2018-12-29 08:55 | PROVIDER PROGRESS NOTE ---
Subjective - General Admit Date: 12/26/18 Procedure Date: 12/26/18 Post Op Days: 3 Procedure Performed: right Total Hip Replacement - Review of Systems Wound/Incisions: positive: Healing well Genitourinary: positive: Frequency Musculoskeletal: positive: Joint pain Psychiatric: positive: No symptoms Objective - Patient Data Reviewed Vital Signs: Yes Vital Signs: Vital Signs x48h Temp Pulse Resp BP BP Pulse Ox 12/29/18 08:11 36.7 C 87 16 125/71 98 12/29/18 04:30 85 18 124/70 99 12/29/18 02:45 16 126/65 98 12/29/18 02:40 66 16 110/55 L 98 12/29/18 01:02 36.9 C 70 16 129/48 L 96 Intake & Output: Intake and Output Totals x24h 12/27/18 12/28/18 12/29/18 23:59 23:59 23:59 Intake Total 2723.333 1210 1120 Output Total 1975 2125 250 Balance 748.333 -915 870 - Lab Results Lab Results: 12/29/18 04:34 12/29/18 04:34 Other Lab Results: Lab Results x24hrs 12/29/18 12/29/18 Range/Units 04:34 04:34 WBC 6.9 (4.8-10.8) x10^3/uL RBC 2.96 L (4.20-5.40) 10^6/uL Hgb 9.7 L (12.0-16.0) g/dL Hct 27.8 L (37.0-47.0) % MCV 93.9 (81.0-99.0) fL MCH 32.9 H (27.0-31.0) pg MCHC 35.0 (32.0-36.0) g/dL RDW 12.9 (12.0-15.0) % Plt Count 229 (130-450) 10^3/uL MPV 6.6 L (7.9-10.8) fL Neut # (Auto) 5.5 (1.5-6.6) 10^3/uL Lymph # (Auto) 0.8 L (1.5-3.5) 10^3/uL [place] # (Auto) 0.5 (0.0-1.0) 10^3/uL Eos # (Auto) 0.0 (0.0-0.7) 10^3/uL Baso # (Auto) 0.0 (0.0-0.1) 10^3/uL Absolute Nucleated RBC 0.00 x10^3/uL Nucleated RBC % 0.0 /100WBC Sodium 135 (135-145) mmol/L Potassium 3.6 (3.5-5.0) mmol/L Chloride 100 L (101-111) mmol/L Carbon Dioxide 26 (21-32) mmol/L Anion Gap 9.0 (6-13) BUN 9 (6-20) mg/dL Creatinine 0.6 (0.4-1.0) mg/dL Estimated GFR (MDRD) 97 (>89) Glucose 141 H (70-100) mg/dL Calcium 8.5 (8.5-10.3) mg/dL Phosphorus 2.2 L (2.5-4.6) mg/dL Magnesium 2.0 (1.7-2.8) mg/dL - Current Medications Current Medications: Current Medications Generic Name Dose Route Start Last Admin Trade Name Freq PRN Reason Stop Dose Admin Acetaminophen 650 - 975 mg 12/26/18 10:45 12/29/18 03:28 Tylenol PO 650 mg Q4HR PRN Administration PAIN Polyethylene Glycol 17 gm 12/28/18 09:00 12/28/18 10:17 Miralax PO 17 gm DAILY ELIDA Administration Senna 17.2 mg 12/26/18 10:45 12/28/18 10:18 Senokot PO 17.2 mg Q12H PRN Administration Constipation Senna 8.6 - 17.2 mg 12/28/18 09:00 12/28/18 10:16 Senokot PO 8.6 mg DAILY ELIDA Administration Sodium Chloride 10 ml 12/26/18 17:00 12/29/18 01:15 Normal Saline Flush 0.9% IVP 10 ml 0100,0900,1700 ELIDA Administration - Physical Exam Wound/Incisions: positive: Healing well General Appearance: positive: No acute distress Skin: positive: No rash, Warm, Dry Extremities: positive: Joint swelling Neurologic/Psychiatric: positive: Oriented x3, CN's nml (2-12), Motor nml, Sensation nml, Mood/affect nml Impression/Plan - Problem List Problem List: POD The patient continues to have Vasovagal events. Usually with voiding. Has had delay of PT today, therefore will delay d/c to tomorrow. Plan to have patient once again ambulate, and sit in chair. talked about d/c plans again, will delay for rehydration. Resume activity
--- NOTE | 2018-12-29 09:05 | Discharge Plan ---
Discharge Plan Disposition: Home, Self Care Condition: Good Prescriptions: oxyCODONE [Roxicodone] 5 mg PO Q4HR PRN #20 tablet PRN Reason: Pain Bisacodyl Supp [Dulcolax Supp] 10 mg [place] Q12H PRN #10 supp PRN Reason: Constipation Senna [Senokot] 17.2 mg PO Q12H PRN #30 tablet PRN Reason: Constipation Walker [Ultra-Light Rollator] 1 each MC DAILY #1 each Diet: Regular Activity Restrictions: use of walker, no extremem hip positioning. Shower Restrictions: Yes (cover wound) Driving Restrictions: Yes (no driving) Assistance Devices: Walker Weight Bearing: Full Weight No Smoking: If you smoke, Please STOP! Call for help. Follow-up with: Radha Deal PA-C [Primary Care Provider] - Kasey Dang MD [Provider Admit Priv/Credential] -
[2018-12-29] MEDS: SODIUM CHLORIDE 0.9% 1,000 ML IV SCH ×2 (10:28→18:22)
[2018-12-29] MEDS: SENNA 8.6 MG TABLET PO SCH (10:29)
[2018-12-29] MEDS: POLYETHYLENE GLYCOL 3350 17 GM PACKET PO SCH (10:29)
[2018-12-29 16:19] LABS: ALBUMIN 3.1 g/dL (3.2-5.5); BILIRUBIN,DIRECT 0.3 mg/dL (0.1-0.5); BILIRUBIN,TOTAL 1.2 mg/dL (0.2-1.0); CALCIUM 8.7 mg/dL (8.5-10.3); CREATININE 0.5 mg/dL (0.4-1.0); PHOSPHORUS 2.2 mg/dL (2.5-4.6); TOTAL PROTEIN 6.1 g/dL (6.7-8.2)
--- NOTE | 2018-12-29 19:44 | CONSULTATION NOTE ---
DATE OF SERVICE: 12/29/2018 Physician: Genie Aguilar MD HISTORY OF PRESENT ILLNESS: This is a 73-year-old white female with a history of degenerative joint disease, underwent an elective hip arthroplasty several days ago. The patient has a history of recurrent syncope from approximately a year ago. She has had about 7 or 8 episodes in her life since then. Three of them have occurred during this hospitalization. Therefore, the consultation is called to the Hospitalist. The patient states that about a year ago, there were several episodes where she had syncope while sitting on the toilet and defecating, 1 episode occurred when she was hospitalized for a different orthopedic surgery and was told that she "had a vasovagal syncope." She was sent for outpatient evaluation to a duty manager, Dr. Sarmiento, went through some types of tests and said that "her heart was fine". When asked if she specifically had a Holter monitor, tilt table test or stress test, she said she had none of these. Approximately 9 months ago, she had an episode of syncope in her house on the toilet, again with defecation. She was able to call 911 and was told to go to answer the door for the ambulance crew and when she stood up, she had syncope on the way to the door. She was brought to the emergency room that time and was told that she was dehydrated, received fluids and was discharged home. I cannot find the vital signs from the scene, or the ambulance run sheet for that remote event. On this admission, she has had 3 syncopal episodes, all of them while sitting on the toilet/commode for defecating. She gets a quick warning of dizziness and then slumps on the toilet, slightly sliding down and losing her muscle tone, but has never fallen, hit her head or had any other trauma with any of her 7 or 8 events. She was seen last night after a syncopal event by the manager trust. By the time she was evaluated, she was completely awake, had no memory of the event, as she never does. At that point, her vital signs were stable, they were taken when she was put back to bed; she has a good blood pressure in the 120/80 range and heart rates are in the 70s and 80s. She was not put on telemetry, unfortunately, since being admitted, and was not telemetry monitored during any of these 3 events There have been 2 orthostatic vital sign checks; she had mild drop in systolic blood pressure from 134 to the 120s and is asymptomatic with this. She denies any cardiac symptoms otherwise. She has never had a stress test, she has never had a Holter monitor or tilt table test or Electrophysiology consultation. She states that she "runs a low blood pressure usually." ALLERGIES: NONE. CURRENT MEDICATIONS 1. Tylenol p.r.n. 2. Dulcolax suppository. 3. Toradol p.r.n. pain. 4. Zofran p.r.n. nausea. 5. Roxicodone p.r.n. pain. 6. MiraLax daily. 7. Compazine p.r.n. nausea. 8. Senokot p.r.n. 9. She is currently on saline at 125 mL an hour since last night. SOCIAL HISTORY: She is a nonsmoker, who never smoked, drinks rare alcohol. No illicit drug use history. She lives with her . FAMILY HISTORY: No inherited diseases. PHYSICAL EXAMINATION GENERAL: White female who is in no distress, sitting in a chair. VITAL SIGNS: Blood pressure 132/80, heart rate is 90-100, in sinus rhythm, afebrile, respiratory rate 18, room air saturation 98%. HEENT: Unremarkable. NECK: Without carotid bruits, there is positive JVD bilaterally. CHEST: Clear. No wheezes. HEART: Heart sounds normal. No murmurs. No gallop or rub. ABDOMEN: Soft, positive bowel sounds, nontender. No organomegaly. EXTREMITIES: No clubbing, cyanosis or edema. NEUROLOGIC: Grossly intact. LABORATORY: Normal electrolytes. Normal BUN and creatinine, normal magnesium and phosphorus. Total bilirubin 1.2, AST 99, ALT 87, albumin low at 3.1. There is no previous liver tests to evaluate. White blood count 6.9, hemoglobin 9.7, yesterday it was 9.2, platelet count normal at 229. No INR was done. There was no chest x-ray done. She had hip and pelvis x-rays which showed right total hip arthroplasty. EKG: Normal sinus rhythm, early RS transition and compared to an EKG from 2016, early RS transition is new. IMPRESSION/DIAGNOSES 1. Recurrent syncope. 2. Anemia. 3. Elevated liver function tests. 4. Degenerative joint disease. 5. Status post hip arthroplasty. PLAN: Begin telemetry. Obtain an Echo to evaluate LV and RV contractility and PA pressure. Obtain a carotid Doppler. Recommend starting compression knee- high stockings, since one of her events occurred with postural change from standing going to vertical. Recommend liberal salt use and good hydration with not just water, but electrolyte-containing fluids such as Gatorade, Propel or broths. She also was advised to work on having very soft stools in order to not have to strain during bowel movements. The events do sound like vasovagal symptoms. The patient needs further outpatient testing, including a 24 or 48-hour Holter monitor and a tilt table test. Therefore, since they are recurrent, and if bradycardia is documented with an event, she would be a candidate for permanent pacemaker. This needs further outpatient evaluation and management with her PCP or Cardiology. Thank you for allowing me to participate in the care of this patient. TD: 12/29/2018 18:52 REVISED 01/04/2019 coreen FLORES correction/headings Orig signed 12/30/2018@0753 VIDAL
--- NOTE | 2018-12-29 21:38 | Ultrasound Report ---
Reason: syncope Procedure Date: 12/29/2018 Accession Number: [id number] / [id number] Procedure: US - Carotid Doppler Complete CPT Code: FULL RESULT: EXAM: BILATERAL CAROTID AND VERTEBRAL ARTERY DUPLEX DOPPLER ULTRASOUND: EXAM DATE: 12/29/2018 05:24 PM CLINICAL HISTORY: Syncope. Post hip replacement. COMPARISON: None. TECHNIQUE: Grayscale imaging, color Doppler, and duplex spectral Doppler were used to evaluate the carotid and vertebral arteries bilaterally. Static images were obtained. FINDINGS: No significant plaque is identified in the right or left common or internal carotid arteries. Normal antegrade flow is present in bilateral vertebral arteries. VELOCITIES (cm/sec): Right CCA mid: PSV 100 cm/sec CCA dist: PSV 97 cm/sec ICA prox: PSV 59 cm/sec, EDV 16 cm/sec ICA mid: PSV 89 cm/sec, EDV 28 cm/sec ICA dist: PSV 92 cm/sec, EDV 32 cm/sec ECA: PSV 72 cm/sec Vert: PSV 59 cm/sec ICA/CCA: 0.9 Left CCA mid: PSV 85 cm/sec CCA dist: PSV 103 cm/sec ICA prox: PSV 88 cm/sec, EDV 25 cm/sec ICA mid: PSV 89 cm/sec, EDV 29 cm/sec ICA dist: PSV 78 cm/sec, EDV 26 cm/sec ECA: PSV 63 cm/sec Vert: PSV 68 cm/sec ICA/CCA: 0.9 ICA diameter stenosis: Right: <50% by velocity and <70% by NASCET criteria. Left: <50% by velocity and <70% by NASCET criteria. IMPRESSION: 1. No significant bilateral carotid artery plaquing. 2. In the right carotid artery there are no elevated carotid artery velocities to suggest hemodynamically significant stenosis. 3. In the left carotid artery there are no elevated carotid artery velocities to suggest hemodynamically significant stenosis. 4. Normal antegrade flow is present in bilateral vertebral arteries. General Recommendations: Stenosis =50% ICA - Follow-up ultrasound 6-12 months Stenosis <50% ICA - High Risk Patient with plaque - Follow-up ultrasound 1-2 years Normal Study but High Risk Patient - Follow-up ultrasound 3-5 years Management recommendations and diagnostic criteria are based on current IAC endorsed standards in Carotid Artery Stenosis: Grayscale and Doppler Ultrasound Diagnosis. Validated velocity measurements with angiographic measurements and velocity criteria are extrapolated from diameter data as defined by the Society of Radiologists in Ultrasound Consensus Conference Radiology 2003; 229;340-346. RADIA
[2018-12-30] MEDS: SODIUM CHLORIDE FLUSH 0.9% 10 ML SYRINGE IVP SCH ×2 (01:44→11:16)
[2018-12-30] MEDS: ACETAMINOPHEN 325 MG TABLET PO PRN (03:02)
[2018-12-30 06:00] LABS: % IRON SATURATION 17 % (20-50); IRON 31 ug/dL (28-170); TOTAL IRON BINDING CAPACITY 179 ug/dL (250-450); TRANSFERRIN 128 mg/dL (192-382)
[2018-12-30 08:15] LABS: BILIRUBIN,URINE NEGATIVE (NEGATIVE); GLUCOSE, URINE (UA) NEGATIVE (NEGATIVE); KETONES,URINE (UA) NEGATIVE (NEGATIVE); LEUKOCYTE ESTERASE, URINE NEGATIVE (NEGATIVE); NITRITE,URINE NEGATIVE (NEGATIVE); OCCULT BLOOD,URINE NEGATIVE (NEGATIVE); PH,URINE 7.5 PH (5.0-7.5); PROTEIN,URINE NEGATIVE (NEGATIVE); UROBILINOGEN,URINE 0.2 (NORMAL) E.U./dL (NORMAL)
[2018-12-30 08:22] LABS: CLARITY,URINE CLEAR (CLEAR)
--- NOTE | 2018-12-30 08:32 | PROVIDER PROGRESS NOTE ---
Subjective - General Admit Date: 12/26/18 Procedure Date: 12/26/18 Post Op Days: 4 Procedure Performed: right Total Hip Replacement - Review of Systems Wound/Incisions: positive: Healing well Genitourinary: positive: Frequency Musculoskeletal: positive: Joint pain Psychiatric: positive: No symptoms Objective - Patient Data Reviewed Vital Signs: Yes Vital Signs: Vital Signs x48h Temp Pulse Resp BP Pulse Ox 12/30/18 07:57 36.8 C 89 18 124/68 99 12/30/18 05:40 37.0 C 85 16 113/56 L 99 Weight: Weight 12/28/18 12/29/18 12/30/18 23:59 23:59 23:59 Weight (kg) 58 kg Intake & Output: Intake and Output Totals x24h 12/28/18 12/29/18 12/30/18 23:59 23:59 23:59 Intake Total 1210 2830.5 150 Output Total 2125 750 500 Balance -915 2080.5 -350 - Lab Results Lab Results: 12/29/18 04:34 12/29/18 04:34 Other Lab Results: Lab Results x24hrs 12/30/18 12/30/18 12/30/18 Range/Units 08:05 05:12 05:12 Sodium (135-145) mmol/L Potassium (3.5-5.0) mmol/L Chloride (101-111) mmol/L Carbon Dioxide (21-32) mmol/L Anion Gap (6-13) BUN (6-20) mg/dL Creatinine (0.4-1.0) mg/dL Estimated GFR (MDRD) (>89) Glucose (70-100) mg/dL Calcium (8.5-10.3) mg/dL Phosphorus (2.5-4.6) mg/dL Iron 31 (28-170) ug/dL TIBC 179 L (250-450) ug/dL % Saturation 17 L (20-50) % Transferrin 128 L (192-382) mg/dL Total Bilirubin (0.2-1.0) mg/dL Direct Bilirubin (0.1-0.5) mg/dL AST (10-42) IU/L ALT (10-60) IU/L Alkaline Phosphatase (42-121) IU/L Total Protein (6.7-8.2) g/dL Albumin (3.2-5.5) g/dL Globulin (2.1-4.2) g/dL Vitamin B12 536 (180-914) pg/mL Folate (5.90 - >24.8) ng/mL Urine Color YELLOW Urine Clarity CLEAR (CLEAR) Urine pH 7.5 (5.0-7.5) PH Ur Specific [place] 1.010 (1.002-1.030) Urine Protein NEGATIVE (NEGATIVE) mg/dL Urine Glucose (UA) NEGATIVE (NEGATIVE) mg/dL Urine Ketones NEGATIVE (NEGATIVE) mg/dL Urine Occult Blood NEGATIVE (NEGATIVE) Urine Nitrite NEGATIVE (NEGATIVE) Urine Bilirubin NEGATIVE (NEGATIVE) Urine Urobilinogen 0.2 (NORMAL) (NORMAL) E.U./dL Ur Leukocyte Esterase NEGATIVE (NEGATIVE) Ur Microscopic Review NOT INDICATED Urine Culture Comments NOT INDICATED 12/30/18 12/29/18 Range/Units 05:12 04:34 Sodium 137 (135-145) mmol/L Potassium 3.7 (3.5-5.0) mmol/L Chloride 102 (101-111) mmol/L Carbon Dioxide 27 (21-32) mmol/L Anion Gap 8.0 (6-13) BUN 9 (6-20) mg/dL Creatinine 0.5 (0.4-1.0) mg/dL Estimated GFR (MDRD) 120 (>89) Glucose 134 H (70-100) mg/dL Calcium 8.7 (8.5-10.3) mg/dL Phosphorus 2.2 L (2.5-4.6) mg/dL Iron (28-170) ug/dL TIBC (250-450) ug/dL % Saturation (20-50) % Transferrin (192-382) mg/dL Total Bilirubin 1.2 H (0.2-1.0) mg/dL Direct Bilirubin 0.3 (0.1-0.5) mg/dL AST 99 H (10-42) IU/L ALT 87 H (10-60) IU/L Alkaline Phosphatase 61 (42-121) IU/L Total Protein 6.1 L (6.7-8.2) g/dL Albumin 3.1 L (3.2-5.5) g/dL Globulin 3.0 (2.1-4.2) g/dL Vitamin B12 (180-914) pg/mL Folate 10.70 (5.90 - >24.8) ng/mL Urine Color Urine Clarity (CLEAR) Urine pH (5.0-7.5) PH Ur Specific [place] (1.002-1.030) Urine Protein (NEGATIVE) mg/dL Urine Glucose (UA) (NEGATIVE) mg/dL Urine Ketones (NEGATIVE) mg/dL Urine Occult Blood (NEGATIVE) Urine Nitrite (NEGATIVE) Urine Bilirubin (NEGATIVE) Urine Urobilinogen (NORMAL) E.U./dL Ur Leukocyte Esterase (NEGATIVE) Ur Microscopic Review Urine Culture Comments - Current Medications Current Medications: Current Medications Generic Name Dose Route Start Last Admin Trade Name Freq PRN Reason Stop Dose Admin Acetaminophen 650 - 975 mg 12/26/18 10:45 12/30/18 03:02 Tylenol PO 650 mg Q4HR PRN Administration PAIN Polyethylene Glycol 17 gm 12/28/18 09:00 12/29/18 10:29 Miralax PO Not Given DAILY ELIDA Senna 17.2 mg 12/26/18 10:45 12/28/18 10:18 Senokot PO 17.2 mg Q12H PRN Administration Constipation Senna 8.6 - 17.2 mg 12/28/18 09:00 12/29/18 10:29 Senokot PO Not Given DAILY [facility] Sodium Chloride 10 ml 12/26/18 17:00 12/30/18 01:44 Normal Saline Flush 0.9% IVP Not Given 0100,0900,1700 [facility] - Physical Exam Wound/Incisions: positive: Dressing dry and intact Extremities: positive: Joint swelling Neurologic/Psychiatric: positive: Oriented x3, CN's nml (2-12), Motor nml, Sensation nml, Mood/affect nml Impression/Plan - Problem List Problem List: POD #4 Pt is progressing well. Plan to d/c home and f/u next Tuesday Walker use with weight bear as tolerated. dressing to remain intact.
--- NOTE | 2018-12-30 08:51 | PROVIDER PROGRESS NOTE ---
Assessment/Plan - Problem List (1) Recurrent syncope Assessment/Plan: I reviewed the results of tests done: essentially normal carotid Doppler and Echo results. Telemetry has been stable since she was hooked up to telemetry yesterday afternoon. I gave the patient a copy of my Consult, to bring to her PCP, in order to have further outpatient testing and consults arranged by the PCP. She is being DCh by the Orthopedist today. - Current Meds Current Meds: Current Medications Generic Name Dose Route Start Last Admin Trade Name Freq PRN Reason Stop Dose Admin Acetaminophen 650 - 975 mg 12/26/18 10:45 12/30/18 03:02 Tylenol PO 650 mg Q4HR PRN Administration PAIN Polyethylene Glycol 17 gm 12/28/18 09:00 12/29/18 10:29 Miralax PO Not Given DAILY ELIDA Senna 17.2 mg 12/26/18 10:45 12/28/18 10:18 Senokot PO 17.2 mg Q12H PRN Administration Constipation Senna 8.6 - 17.2 mg 12/28/18 09:00 12/29/18 10:29 Senokot PO Not Given DAILY ELIDA Sodium Chloride 10 ml 12/26/18 17:00 12/30/18 01:44 Normal Saline Flush 0.9% IVP Not Given 0100,0900,1700 ELIDA - Lab Result Fish Bone Diagrams: 12/29/18 04:34 12/29/18 04:34 - Additional Planning My Orders: My Active Orders 12/29/18 15:46 Telemetry- [RC] Q4HR 12/29/18 15:50 SEA Jett [RC] QSHIFT 12/30/18 08:00 Echo Transthoracic Complete [ECHO] Routine 12/30/18 09:00 Postural [Vital Signs - Orthostatic] [RC] DAILY Subjective - Subjective Patient Reports: Resting Comfortably, No Complaints Objective Vital Signs: Vital Signs - 24 hr 12/29/18 12/29/18 12/29/18 10:49 11:55 16:00 Temperature 36.6 C 37.0 C Heart Rate [ 89 103 H Brachial] Heart Rate [ 87 Sitting (After 1 Minute)] Heart Rate [ 89 Supine] Respiratory 18 18 Rate Blood Pressure 147/68 H 132/82 H [Right Brachial artery] Blood Pressure 142/69 H [Sitting (After 1 Minute)] Blood Pressure 147/68 H [Supine] O2 Saturation 98 98 12/29/18 12/29/18 12/29/18 19:00 20:43 23:45 Temperature 37.7 C H 37.6 C H 37.0 C Heart Rate [ 102 H 93 96 Brachial] Heart Rate [ Sitting (After 1 Minute)] Heart Rate [ Supine] Respiratory 18 18 16 Rate Blood Pressure 135/60 H 126/60 129/68 [Right Brachial artery] Blood Pressure [Sitting (After 1 Minute)] Blood Pressure [Supine] O2 Saturation 97 98 97 12/30/18 12/30/18 05:40 07:57 Temperature 37.0 C 36.8 C Heart Rate [ 85 89 Brachial] Heart Rate [ Sitting (After 1 Minute)] Heart Rate [ Supine] Respiratory 16 18 Rate Blood Pressure 113/56 L 124/68 [Right Brachial artery] Blood Pressure [Sitting (After 1 Minute)] Blood Pressure [Supine] O2 Saturation 99 99 Oxygen O2 Source [With Activity] Room air O2 Source [Without Activity] Room air O2 Source Room air I&O (Last 24 Hrs): Intake and Output Totals x24h 12/28/18 12/29/18 12/30/18 23:59 23:59 23:59 Intake Total 1210 2830.5 270 Output Total 2125 750 500 Balance -915 2080.5 -230 General: Alert, Oriented x3 HEENT: Mucous membr. moist/pink Neck: Supple Neuro: Alert, Non Focal Cardiovascular: Regular rate Respiratory: No respiratory distress Abdomen: Soft Extremities: No edema - Results Results: Laboratory Results WBC 6.9 x10^3/uL (4.8-10.8) 12/29/18 04:34 RBC 2.96 10^6/uL (4.20-5.40) L 12/29/18 04:34 Hgb 9.7 g/dL (12.0-16.0) L 12/29/18 04:34 Hct 27.8 % (37.0-47.0) L 12/29/18 04:34 MCV 93.9 fL (81.0-99.0) 12/29/18 04:34 MCH 32.9 pg (27.0-31.0) H 12/29/18 04:34 MCHC 35.0 g/dL (32.0-36.0) 12/29/18 04:34 RDW 12.9 % (12.0-15.0) 12/29/18 04:34 Plt Count 229 10^3/uL (130-450) 12/29/18 04:34 MPV 6.6 fL (7.9-10.8) L 12/29/18 04:34 Neut # (Auto) 5.5 10^3/uL (1.5-6.6) 12/29/18 04:34 Lymph # (Auto) 0.8 10^3/uL (1.5-3.5) L 12/29/18 04:34 [place] # (Auto) 0.5 10^3/uL (0.0-1.0) 12/29/18 04:34 Eos # (Auto) 0.0 10^3/uL (0.0-0.7) 12/29/18 04:34 Baso # (Auto) 0.0 10^3/uL (0.0-0.1) 12/29/18 04:34 Absolute Nucleated RBC 0.00 x10^3/uL 12/29/18 04:34 Nucleated RBC % 0.0 /100WBC 12/29/18 04:34 Sodium 137 mmol/L (135-145) 12/29/18 04:34 Potassium 3.7 mmol/L (3.5-5.0) 12/29/18 04:34 Chloride 102 mmol/L (101-111) 12/29/18 04:34 Carbon Dioxide 27 mmol/L (21-32) 12/29/18 04:34 Anion Gap 8.0 (6-13) 12/29/18 04:34 BUN 9 mg/dL (6-20) 12/29/18 04:34 Creatinine 0.5 mg/dL (0.4-1.0) 12/29/18 04:34 Estimated GFR (MDRD) 120 (>89) 12/29/18 04:34 Glucose 134 mg/dL (70-100) H 12/29/18 04:34 Calcium 8.7 mg/dL (8.5-10.3) 12/29/18 04:34 Phosphorus 2.2 mg/dL (2.5-4.6) L 12/29/18 04:34 Magnesium 2.0 mg/dL (1.7-2.8) 12/29/18 04:34 Iron 31 ug/dL (28-170) 12/30/18 05:12 TIBC 179 ug/dL (250-450) L 12/30/18 05:12 % Saturation 17 % (20-50) L 12/30/18 05:12 Transferrin 128 mg/dL (192-382) L 12/30/18 05:12 Total Bilirubin 1.2 mg/dL (0.2-1.0) H 12/29/18 04:34 Direct Bilirubin 0.3 mg/dL (0.1-0.5) 12/29/18 04:34 AST 99 IU/L (10-42) H 12/29/18 04:34 ALT 87 IU/L (10-60) H 12/29/18 04:34 Alkaline Phosphatase 61 IU/L (42-121) 12/29/18 04:34 Total Protein 6.1 g/dL (6.7-8.2) L 12/29/18 04:34 Albumin 3.1 g/dL (3.2-5.5) L 12/29/18 04:34 Globulin 3.0 g/dL (2.1-4.2) 12/29/18 04:34 Vitamin B12 536 pg/mL (180-914) 12/30/18 05:12 Folate 10.70 ng/mL (5.90 - >24.8) 12/30/18 05:12 Urine Color YELLOW 12/30/18 08:05 Urine Clarity CLEAR (CLEAR) 12/30/18 08:05 Urine pH 7.5 PH (5.0-7.5) 12/30/18 08:05 Ur Specific [place] 1.010 (1.002-1.030) 12/30/18 08:05 Urine Protein NEGATIVE mg/dL (NEGATIVE) 12/30/18 08:05 Urine Glucose (UA) NEGATIVE mg/dL (NEGATIVE) 12/30/18 08:05 Urine Ketones NEGATIVE mg/dL (NEGATIVE) 12/30/18 08:05 Urine Occult Blood NEGATIVE (NEGATIVE) 12/30/18 08:05 Urine Nitrite NEGATIVE (NEGATIVE) 12/30/18 08:05 Urine Bilirubin NEGATIVE (NEGATIVE) 12/30/18 08:05 Urine Urobilinogen 0.2 (NORMAL) E.U./dL (NORMAL) 12/30/18 08:05 Ur Leukocyte Esterase NEGATIVE (NEGATIVE) 12/30/18 08:05 Ur Microscopic Review NOT INDICATED 12/30/18 08:05 Urine Culture Comments NOT INDICATED 12/30/18 08:05 Blood Type O POSITIVE 12/26/18 09:09 Antibody Screen NEGATIVE 12/26/18 09:09 - Procedures Procedures: Procedures HIP BEARING SURFACE, [id number] (10/30/13) TOTAL HIP REPLACEMENT (10/30/13)
[2018-12-30 09:20] VITALS: BP 136/66
[2018-12-30] MEDS: POLYETHYLENE GLYCOL 3350 17 GM PACKET PO SCH (11:15)
[2018-12-30] MEDS: SENNA 8.6 MG TABLET PO SCH (11:15)
--- NOTE | 2019-01-16 08:31 | Discharge Plan ---
Discharge Plan Disposition: Home, Self Care Condition: Good Prescriptions: oxyCODONE [Roxicodone] 5 mg PO Q4HR PRN #20 tablet PRN Reason: Pain Bisacodyl Supp [Dulcolax Supp] 10 mg [place] Q12H PRN #10 supp PRN Reason: Constipation Senna [Senokot] 17.2 mg PO Q12H PRN #30 tablet PRN Reason: Constipation Walker [Ultra-Light Rollator] 1 each MC DAILY #1 each Activity Restrictions: use of walker, no extremem hip positioning. Shower Restrictions: Yes (cover wound) Driving Restrictions: Yes (no driving) Weight Bearing: Full Weight Instruction Topics: Oxycodone tablets or capsules, Hip Replace Total Dc, Understanding Vasovagal Syncope No Smoking: If you smoke, Please STOP! Call for help. Follow-up with: Kasey Dang MD [Provider Admit Priv/Credential] - Radha Deal PA-C [Primary Care Provider] -
--- NOTE | 2019-01-16 09:59 | DISCHARGE SUMMARY ---
Physician: Kasey Dang MD DATE OF ADMISSION: 12/26/2018 DATE OF DISCHARGE: 12/30/2018 ADMISSION DIAGNOSIS: Right hip osteoarthritis. OPERATIVE PROCEDURE: Right total hip replacement arthroplasty. REASON FOR ADMISSION: Patient is a 73-year-old female with increasing right hip arthritis with pain on ambulation and nonresponsiveness to conservative care, and x-rays revealing advancing arthritis of her right hip. The patient's presurgery history and physical exam are documented in the hospital record. HOSPITAL COURSE: The patient was admitted, underwent surgery uneventfully. Post-op period she was placed on the medical/surgical floor. Her postoperative care was eventful for episodes of vasovagal syncope, a problem that the patient has had preadmission periodically, and this presented itself in the postoperative period and did cause some issues with mobilization out of bed. The patient was seen in consultation by the hospitalist, and efforts were undertaken to quell this problem and make it more quiet while therapy was undertaken and rehabilitation was undertaken. The patient did seem to have good response to oral medications and uneventful wound healing and ambulation with weightbearing with therapy. At the time of discharge, she was comfortable and healing well with an uneventful appearing wound, and her vasovagal symptoms had disappeared, and she was able to be independent getting to the bathroom. At this point, she was discharged to home with plans for followup in [facility] within a week, to be on oxycodone and aspirin, and to see her primary care provider as needed for vasovagal symptoms. DISCHARGE DIAGNOSIS: Right hip osteoarthritis. OPERATIVE PROCEDURE: Total hip arthroplasty. SECONDARY DIAGNOSIS: Included vasovagal syncope. TD: 01/16/2019 08:33 VIDAL
== END 2018-12-30 11:00 | disposition home or self-care (01) | DRG 470 ==
LOC: MS2 07:21
PROVIDERS: ADMIT Orthopaedic Surgery; ATTEND Orthopaedic Surgery
PROC: 0SR901Z Replacement of Right Hip Joint with Metal Synthetic Substitute, Open Approach (ICD-10-PCS; principal; 2018-12-26 08:30)
DX: M16.11 Unilateral primary osteoarthritis, right hip (principal); M81.0 Age-related osteoporosis without current pathological fracture; R55 Syncope and collapse; D64.9 Anemia, unspecified; R79.89 Other specified abnormal findings of blood chemistry; Z96.642 Presence of left artificial hip joint; Z87.891 Personal history of nicotine dependence
CPT/HCPCS: 36415; 73502; 80048; 80069; 80076; 81003; 82607; 82746; 83540; 83735; 84100; 84466; 85014; 85018; 85025; 86850; 86900; 86901; 93005; 93306; 93880; 97116; 97161; 97166; 97535; A9270; J0131; J0690; J7120; 81001; 87086

== ENCOUNTER 2019-05-25 10:52 | Outpatient (CLI) | payer MEDICARE ==
--- NOTE | 2019-05-25 11:44 | XRAY Report ---
Reason: NECK PAIN CHRONIC Procedure Date: 05/25/2019 Accession Number: [id number] / [id number] Procedure: XR - Cervical Spine 2 View CPT Code: FULL RESULT: EXAM: CERVICAL SPINE RADIOGRAPHY EXAM DATE: 05/25/2019 11:08 AM. CLINICAL HISTORY: Neck pain chronic. COMPARISONS: None. TECHNIQUE: 3 views. FINDINGS: Alignment: Slight loss of normal lordosis with minimal kyphosis centered at C4-C5. Bones: The cervical vertebral bodies and posterior elements are well visualized from the skull base through C7-T1. No fractures or bone lesions. Disks: Moderate to severe disk height narrowing at C4-C5 and C5-C6. Mild narrowing at C6-C7. No significant subluxation. Facets: Uncovertebral joint and facet joint arthropathy. Soft Tissues: Normal. No prevertebral soft tissue swelling. The visualized lung apices are clear. IMPRESSION: 1. No acute abnormality. 2. Moderately severe multilevel degenerative disk disease as discussed above. No significant subluxation. RADIA
== END 2019-05-25 10:53 | disposition home or self-care (01) ==
LOC: DI 10:52
PROVIDERS: ATTEND Physician Assistant Medical
DX: M50.321 Other cervical disc degeneration at C4-C5 level (principal); M48.02 Spinal stenosis, cervical region
CPT/HCPCS: 72040

== ENCOUNTER 2019-08-02 12:53 | Outpatient (CLI) | payer MEDICARE | END 2019-08-02 12:54 | disposition critical access hospital (66) | LOC: EMS 12:53 | PROVIDERS: ATTEND Surgery | DX: R55 Syncope and collapse (principal); R42 Dizziness and giddiness; R03.1 Nonspecific low blood-pressure reading | CPT/HCPCS: A0425; A0427 ==

== ENCOUNTER 2019-08-02 13:12 | Emergency (ER) | payer MEDICARE ==
[2019-08-02] MEDS: SODIUM CHLORIDE 0.9% 1,000 ML IV ONE (13:45)
--- NOTE | 2019-08-02 13:49 | ED Physician Documentation ---
History of Present Illness - Stated complaint Stated Complaint: DIZZY - Chief complaint Chief Complaint: Neuro - History obtained from History obtained from: Patient, EMS - History of Present Illness Timing: Today Pain level max: 0 Pain level now: 0 - Additonal information Additional information: 74-year-old female presents to the emergency department after eating lunch today, She went to stand up and felt lightheaded and dizzy. No chest pain. No palpitations. She sat down on the ground. Her blood pressure was 60/40 with EMS. She currently feels better. Given IV fluids by EMS. She states that this is happened to her before when she was dehydrated. Nothing makes it better or worse currently. No recent illnesses. No trauma. Review of Systems Ten Systems: 10 systems reviewed and negative Constitutional: denies: Fever, Chills Ears: denies: Ear pain Nose: denies: Rhinorrhea / runny nose, Congestion Throat: denies: Sore throat Respiratory: denies: Cough GI: denies: Nausea, Vomiting, Diarrhea Skin: denies: Rash Musculoskeletal: denies: Neck pain, Back pain Neurologic: denies: Headache PD PAST MEDICAL HISTORY - Past Medical History Past Medical History: Yes Cardiovascular: High cholesterol Respiratory: None Neuro: None Endocrine/Autoimmune: None GI: None INSTRUCTIONAL MATERIAL DIRECTOR: None : None HEENT: Chronic vision loss Psych: None Musculoskeletal: Osteoarthritis Derm: None - Past Surgical History Past Surgical History: Yes Ortho: Hip replacement /INSTRUCTIONAL MATERIAL DIRECTOR: Other HEENT: Cataracts - Present Medications Home Medications: Ambulatory Orders Medication Instructions Recorded Confirmed Atorvastatin Calcium [Lipitor] 10 mg PO DAILY 10/29/13 12/07/18 Alendronate Sodium [Binosto] 70 mg PO Q7D 12/07/18 12/26/18 Calcium Carbonate [Calcium] 600 mg PO DAILY 12/07/18 12/07/18 Cholecalciferol (Vitamin D3) 2,000 unit PO DAILY 12/07/18 12/07/18 [Vitamin D3] L. Acidophilus/L. Rhamnosus 1 each PO DAILY 12/07/18 12/07/18 [Probiotic 15 Billion Cell Cap] Aspirin 325 mg PO DAILY 12/26/18 12/26/18 Bisacodyl Supp [Dulcolax Supp] 10 mg MS Q12H PRN #10 supp 12/29/18 Senna [Senokot] 17.2 mg PO Q12H PRN #30 tablet 12/29/18 Walker [Ultra-Light Rollator] 1 each MC DAILY #1 each 12/29/18 oxyCODONE [Roxicodone] 5 mg PO Q4HR PRN #20 tablet 12/29/18 - Allergies Allergies/Adverse Reactions: Allergies Allergy/AdvReac Type Severity Reaction Status Date / Time No Known Drug Allergies Allergy Verified 08/02/19 13:21 - Social History Does the pt smoke?: No Smoking Status: Never smoker Does the pt drink ETOH?: Yes ETOH Use: Wine Does the pt have substance abuse?: No - Immunizations Immunizations are current?: Yes - POLST Patient has POLST: No PD ED PE NORMAL - Vitals Vital signs reviewed: Yes - General General: Alert and oriented X 3, No acute distress, Well developed/nourished - HEENT HEENT: Atraumatic, PERRL, Ears normal, Moist mucous membranes, Pharynx benign - Neck Neck: Supple, no meningeal sign, No bony TTP - Cardiac Cardiac: RRR, Strong equal pulses - Respiratory Respiratory: No respiratory distress, Clear bilaterally - Abdomen Abdomen: Soft, Non tender, Non distended - Back Back: No spinal TTP - Derm Derm: Warm and dry - Extremities Extremities: No edema - Neuro Neuro: Alert and oriented X 3, community assistant 2-12 intact, No motor deficit, No sensory deficit, Normal speech Eye Opening: Spontaneous Motor: Obeys Commands Verbal: Oriented GCS Score: 15 - Psych Psych: Normal mood, Normal affect Results - Vitals Vitals: Vital Signs - 24 hr 08/02/19 08/02/19 13:15 15:10 Temperature 36.4 C L Heart Rate 85 83 Respiratory 16 16 Rate Blood Pressure 139/76 H 132/66 H O2 Saturation 99 99 Oxygen O2 Source [] Room air O2 Source [] Room air O2 Source Room air - EKG (time done) 1323 Rate: Rate (enter#) (88) Rhythm: NSR [place]: Normal Intervals: Normal MS QRS: Normal Ischemia: Normal ST segments - Labs Labs: Laboratory Tests 08/02/19 08/02/19 08/02/19 13:57 13:57 14:22 WBC 7.1 RBC 3.50 L Hgb 11.4 L Hct 34.4 L MCV 98.3 MCH 32.6 H MCHC 33.1 RDW 12.0 Plt Count 227 MPV 8.7 Neut # (Auto) 4.9 Lymph # (Auto) 1.6 Spencer # (Auto) 0.4 Eos # (Auto) 0.1 Baso # (Auto) 0.1 Absolute Nucleated RBC 0.00 Nucleated RBC % 0.0 Sodium 136 Potassium 3.3 L Chloride 101 Carbon Dioxide 27 Anion Gap 8.0 BUN 21 H Creatinine 0.7 Estimated GFR (MDRD) 81 L Glucose 130 H Calcium 8.5 Total Bilirubin 1.5 H AST 19 ALT 14 Alkaline Phosphatase 41 L Total Protein 5.8 L Albumin 3.6 Globulin 2.2 Albumin/Globulin Ratio 1.6 Lipase 30 Urine Color LIGHT YELLOW Urine Clarity CLEAR Urine pH 7.0 Ur Specific [place] 1.010 Urine Protein NEGATIVE Urine Glucose (UA) 100 H Urine Ketones NEGATIVE Urine Occult Blood TRACE-INTA Urine Nitrite NEGATIVE Urine Bilirubin NEGATIVE Urine Urobilinogen 0.2 (NORMAL) Ur Leukocyte Esterase TRACE H Urine RBC 0-5 Urine WBC 6-10 H Urine WBC Clumps PRESENT Ur Epithelial Cells RARE Renal Tubular Ur Squamous Epith Cells FEW Squamous Urine Bacteria Few Urine Casts 0-2 Hyaline Casts Ur Microscopic Review INDICATED Urine Culture Comments INDICATED PD MEDICAL DECISION MAKING - ED course Complexity details: reviewed results, re-evaluated patient, considered differential, d/w patient ED course: 74-year-old female presents to the emergency department after a vasovagal near syncopal event today. No evidence of arrhythmia. No significant lab abnormalities. Feels much better after IV fluids. We will continue supportive care and have her follow-up with her doctor for further care. Encouraged her to drink more water at home. Patient counseled regarding signs and symptoms for which I believe and urgent re-evaluation would be necessary. Patient with good understanding of and agreement to plan and is comfortable going home at this time This document was made in part using voice recognition software. While efforts are made to proofread this document, sound alike and grammatical errors may occur. Patient states that this has happened several times in the past and does not want to be placed in the hospital for observation. Departure - Departure Disposition: 01 Home, Self Care Clinical Impression: Dehydration, Vasovagal near syncope Condition: Good Instructions: ED Dehydration, ED Near Syncope Vasovagal Follow-Up: Radha Deal PA-C [Primary Care Provider] - Within 1 week Comments: Follow-up with your doctor for further care. Return if you worsen. Drink plenty of water at home. Discharge Date/Time: 08/02/19 15:12
[2019-08-02 14:09] LABS: BASOPHILS # (AUTO) 0.1 10^3/uL (0.0-0.1); BASOPHILS % (AUTO) 0.8 %; EOSINOPHILS # (AUTO) 0.1 10^3/uL (0.0-0.7); EOSINOPHILS % (AUTO) 1.5 %; HGB - HEMOGLOBIN 11.4 g/dL (12.0-16.0); LYMPHOCYTES # (AUTO) 1.6 10^3/uL (1.5-3.5); MEAN CORPUSCULAR HEMOGLOBIN 32.6 pg (27.0-31.0); MEAN CORPUSCULAR HGB CONC 33.1 g/dL (32.0-36.0); MEAN CORPUSCULAR VOLUME 98.3 fL (81.0-99.0); MEAN PLATELET VOLUME 8.7 fL (7.9-10.8); MONOCYTES # (AUTO) 0.4 10^3/uL (0.0-1.0); MONOCYTES % (AUTO) 5.8 %; NEUTROPHILS # (AUTO) 4.9 10^3/uL (1.5-6.6); NEUTROPHILS % (AUTO) 69.6 %; PLT - PLATELET COUNT 227 10^3/uL (130-450); WHITE BLOOD COUNT 7.1 x10^3/uL (4.8-10.8)
[2019-08-02 14:15] LABS: ALBUMIN 3.6 g/dL (3.2-5.5); ALBUMIN/GLOBULIN RATIO 1.6 (1.0-2.2); BILIRUBIN,TOTAL 1.5 mg/dL (0.2-1.0); CALCIUM 8.5 mg/dL (8.5-10.3); CREATININE 0.7 mg/dL (0.4-1.0); TOTAL PROTEIN 5.8 g/dL (6.7-8.2)
[2019-08-02 14:32] LABS: BILIRUBIN,URINE NEGATIVE (NEGATIVE); GLUCOSE, URINE (UA) 100 mg/dL (NEGATIVE); KETONES,URINE (UA) NEGATIVE (NEGATIVE); LEUKOCYTE ESTERASE, URINE TRACE (NEGATIVE); NITRITE,URINE NEGATIVE (NEGATIVE); OCCULT BLOOD,URINE TRACE-INTA (NEGATIVE); PROTEIN,URINE NEGATIVE (NEGATIVE); UROBILINOGEN,URINE 0.2 (NORMAL) E.U./dL (NORMAL)
[2019-08-02 14:35] LABS: CLARITY,URINE CLEAR (CLEAR)
[2019-08-02 14:50] LABS: BACTERIA,URINE Few /HPF (None Seen); CASTS, URINE 0-2 Hyaline Casts /LPF; EPITHELIAL CELLS,UR RARE Renal Tubular /HPF (<= Few); RBC,URINE 0-5 /HPF (0-5); SQUAMOUS EPITHELIAL CELL,UR FEW Squamous (<= Few); WBC CLUMPS,URINE PRESENT
[2019-08-02 15:12] VITALS: BP 132/66
== END 2019-08-02 15:12 | disposition home or self-care (01) ==
LOC: EDUNIT# → ED 13:12
DX: E86.0 Dehydration (principal); R55 Syncope and collapse
CPT/HCPCS: 36415; 80053; 81001; 81003; 83690; 85025; 87086; 93005; 96360; 99284

== ENCOUNTER 2019-09-14 10:42 | Outpatient (CLI) | payer MEDICARE ==
--- NOTE | 2019-09-17 13:22 | Mammography Report ---
Reason: ROUTINE MAMMMO Procedure Date: 09/14/2019 Accession Number: [id number] / [id number] Procedure: AJ - Screening Mammo w/Vance CPT Code: Final Report FULL RESULT: EXAM: Screening Mammo w/Vance DATE: 09/14/2019 11:15 AM CLINICAL HISTORY: Screening encounter. History of benign left breast biopsy in 1973. Family history of breast cancer in the mother at the age of 70 and a daughter at the age of 53. TECHNIQUE: (B) - Bilateral CC and MLO views were obtained. Right laterally exaggerated CC view is obtained. COMPARISON: 06/12/2018 through 03/20/2012. PARENCHYMAL PATTERN: (VD) - The breast(s) demonstrate(s) extremely dense parenchyma, limiting the sensitivity of mammography. FINDINGS: There are no suspicious masses, calcifications, or areas of distortion. IMPRESSION: Negative examination. BI-RADS category 1. RECOMMENDATION: (ANNUAL) - Recommend routine annual screening mammography. BI-RADS CATEGORY: (1) - Negative. STANDARD QUALIFYING STATEMENTS: 1. This examination was not reviewed with the aid of Computer-Aided Detection (CAD). 2. A negative or benign imaging report should not preclude biopsy if clinically suspicious findings are present. 3. Dense breasts may obscure an underlying neoplasm. 4. This examination was reviewed with the aid of 3D breast imaging (tomosynthesis).
== END 2019-09-14 10:43 | disposition home or self-care (01) ==
LOC: DI 10:42
DX: Z12.31 Encounter for screening mammogram for malignant neoplasm of breast (principal); Z80.3 Family history of malignant neoplasm of breast
CPT/HCPCS: 77063; 77067

== ENCOUNTER 2019-09-14 10:43 | Outpatient (CLI) | payer MEDICARE ==
--- NOTE | 2019-09-17 14:01 | DEXA Report ---
Reason: BONE DISEASE Procedure Date: 09/14/2019 Accession Number: [id number] / [id number] Procedure: DEX - Dexa Spine and/or Hip CPT Code: Final Report FULL RESULT: EXAM: Dexa Spine and/or Hip, Dexa Forearm DATE: 09/14/2019 11:33 AM CLINICAL HISTORY: BONE DISEASE TECHNIQUE: Dual energy x-ray absorptiometry (DXA) was performed on a [employer] System. Regions measured are the AP Spine, femoral neck, and if needed forearm. COMPARISON: 07/04/2018. In accordance with the International Society for Clinical Densitometry (ISCD) guidelines, data from previous exams may be reanalyzed using current recommendations and techniques. This is done to allow a more accurate basis for comparison with the current study. FINDINGS: The data for the lumbar spine is as follows: BMD (g/cm/cm) T-SCORE Z-SCORE REGION L1 0.761 -3.1 -1.0 L2 0.781 -3.5 -1.4 L3 0.854 -2.9 -0.8 L4 0.863 -2.8 -0.7 TOTAL 0.820 -3.0 -0.9 NOTE: All evaluable vertebrae are used for classification The data for the left forearm is as follows: BMD (g/cm/cm) T-SCORE Z-SCORE REGION 1/3 0.510 -4.2 -1.8 NOTE: The 33% radius of the nondominant forearm is used for classification. DXA RESULTS SUMMARY: Spine SCAN DATE AGE BMD CHANGE VS CHANGE VS PREVIOUS PREVIOUS % 09[age]14/2019 [age] 0[age]820 0.064* 8.5* 07/04/2018 [age] 0.756 -0.063 -7.7* 05/06/2016 [age] 0.819 * Denotes significant change at the 95% confidence level. Denotes dissimilar scan types or analysis methods. DEXA imaging of the forearm is performed due to bilateral hip replacements. IMPRESSION: THE WHO CLASSIFICATION BASED ON THE INTERNATIONAL REFERENCE STANDARD IS OSTEOPOROSIS. THE FRACTURE RISK IS HIGH. Interval decrease in bone density in the lumbar spine is statistically significant. RECOMMENDATION: Patients with diagnosis of osteoporosis or osteopenia should have regular bone mineral density assessment. For those eligible for Medicare, routine testing is allowed once every 2 years. Testing frequency can be increased for patients who have rapidly progressing disease or for those who are receiving medical therapy to restore bone mass. COMMENT: World Health Organization (WHO) definitions for osteoporosis and osteopenia: NORMAL BMD: T-score at -1.0 or higher, fracture risk is low OSTEOPENIA BMD: T-score between -1.0 and -2.5, fracture risk is increased. OSTEOPOROSIS BMD: T-score at -2.5 or lower, fracture risk is high. National Osteoporosis Foundation recommends: 1. Obtain adequate dietary calcium (at least 1200 mg per day) and vitamin D (400-800 international units per day). 2. Participate, as appropriate, in regular weightbearing and muscle-strengthening exercise. 3. Avoid tobacco use and reduce alcohol and caffeine intake. 4. For more detailed information see the website at www.NOF.org.
== END 2019-09-14 10:44 | disposition home or self-care (01) ==
LOC: DI 10:43
PROVIDERS: ATTEND Physician Assistant Medical
DX: M81.0 Age-related osteoporosis without current pathological fracture (principal)
CPT/HCPCS: 77080; 77081

== ENCOUNTER 2020-01-08 07:20 | Outpatient (CLI) | payer MEDICARE ==
[2020-01-08 13:43] LABS: BASOPHILS % (AUTO) 0.8 %; EOSINOPHILS # (AUTO) 0.3 10^3/uL (0.0-0.7); EOSINOPHILS % (AUTO) 6.6 %; HGB - HEMOGLOBIN 13.6 g/dL (12.0-16.0); LYMPHOCYTES # (AUTO) 1.9 10^3/uL (1.5-3.5); MEAN CORPUSCULAR HEMOGLOBIN 32.2 pg (27.0-31.0); MEAN CORPUSCULAR HGB CONC 32.6 g/dL (32.0-36.0); MEAN CORPUSCULAR VOLUME 98.6 fL (81.0-99.0); MEAN PLATELET VOLUME 9.1 fL (7.9-10.8); MONOCYTES # (AUTO) 0.4 10^3/uL (0.0-1.0); MONOCYTES % (AUTO) 8.4 %; NEUTROPHILS # (AUTO) 2.3 10^3/uL (1.5-6.6); PLT - PLATELET COUNT 310 10^3/uL (130-450); RED BLOOD COUNT 4.23 10^6/uL (4.20-5.40); RED CELL DISTRIBUTION WIDTH 12.4 % (12.0-15.0)
[2020-01-08 14:02] LABS: ALBUMIN 4.4 g/dL (3.2-5.5); ALBUMIN/GLOBULIN RATIO 1.6 (1.0-2.2); ALKALINE PHOSPHATASE 42 IU/L (42-121); ALT ALANINE AMINOTRANSFERASE 27 IU/L (10-60); AST ASPARTATE AMINOTRANSFERASE 28 IU/L (10-42); BILIRUBIN,TOTAL 1.8 mg/dL (0.2-1.0); BUN - BLOOD UREA NITROGEN 18 mg/dL (6-20); CALCIUM 9.4 mg/dL (8.5-10.3); CARBON DIOXIDE - CO2 31 mmol/L (21-32); CHLORIDE 95 mmol/L (101-111); CHOL/HDL RATIO 3.2 (<4.4); CHOLESTEROL 254 mg/dL; CREATININE 0.7 mg/dL (0.4-1.0); GLUCOSE 108 mg/dL (70-100); HDL CHOLESTEROL 79 mg/dL; LDL CHOLESTEROL,CALCULATED 161 mg/dL; SODIUM 134 mmol/L (135-145); TOTAL PROTEIN 7.2 g/dL (6.7-8.2); VLDL CHOLESTEROL 14 mg/dL
== END 2020-01-08 23:59 | disposition home or self-care (01) ==
LOC: LAB.WCP 07:20
PROVIDERS: ATTEND Physician Assistant Medical
DX: E78.2 Mixed hyperlipidemia (principal); D50.9 Iron deficiency anemia, unspecified
CPT/HCPCS: 36415; 80053; 80061; 83721; 85025

== ENCOUNTER 2020-04-14 07:09 | Outpatient (CLI) | payer MEDICARE ==
[2020-04-14 15:52] LABS: CHOL/HDL RATIO 3.2 (<4.4); CHOLESTEROL 233 mg/dL; HDL CHOLESTEROL 73 mg/dL; LDL CHOLESTEROL,CALCULATED 148 mg/dL; VLDL CHOLESTEROL 12 mg/dL
== END 2020-04-14 07:10 | disposition home or self-care (01) ==
LOC: LAB.S 07:09
PROVIDERS: ATTEND Physician Assistant Medical
DX: E78.2 Mixed hyperlipidemia (principal)
CPT/HCPCS: 36415; 80061; 83721

== ENCOUNTER 2020-10-23 08:19 | Outpatient (CLI) | payer MEDICARE ==
--- NOTE | 2020-10-24 11:44 | Mammography Report ---
BILATERAL DIGITAL SCREENING MAMMOGRAM 3D/2D: 10/23/2020 CLINICAL: Routine screening. Comparison is made to exams dated: 09/14/2019 mammogram, 06/12/2018 mammogram, 05/26/2017 mammogram, mammogram, 04/02/2015 mammogram, and 08/23/2013 mammogram - [facility]. The tissue of both breasts is extremely dense, which lowers the sensitivity of mammography. No significant masses, calcifications, or other findings are seen in either breast. There has been no significant interval change. IMPRESSION: NEGATIVE There is no mammographic evidence of malignancy. A 1 year screening mammogram is recommended. This exam was interpreted at Station ID: [id number]. NOTE: For mammograms, a report in lay terms will be sent to the patient. Approximately 15% of breast malignancies will not be visualized mammographically. In the management of a palpable breast mass, a negative mammogram must not discourage biopsy of a clinically suspicious lesion. Electronically Signed By: Usama Han M.D. [facility] [place]:10/23/2020 10:17:38 ACR BI-RADS Category 1: Negative 3341F PARENCHYMAL PATTERN: (VD) - The breast(s) demonstrate(s) extremely dense parenchyma, limiting the sen sitivity of mammography. BI-RADS CATEGORY: (1) - 1 RECOMMENDATION: (ANNUAL) - Recommend routine annual screening mammography. 20211024 1 year screening LATERALITY: (B)
== END 2020-10-23 08:20 | disposition home or self-care (01) ==
LOC: DI 08:19
DX: Z12.31 Encounter for screening mammogram for malignant neoplasm of breast (principal)

== ENCOUNTER 2021-04-23 08:39 | Outpatient (CLI) | payer MEDICARE ==
[2021-04-23 08:57] LABS: BASOPHILS # (AUTO) 0.1 10^3/uL (0.0-0.1); BASOPHILS % (AUTO) 1.1 %; EOSINOPHILS # (AUTO) 0.2 10^3/uL (0.0-0.7); EOSINOPHILS % (AUTO) 4.1 %; HCT - HEMATOCRIT 42.1 % (37.0-47.0); HGB - HEMOGLOBIN 14.3 g/dL (12.0-16.0); LYMPHOCYTES # (AUTO) 1.9 10^3/uL (1.5-3.5); LYMPHOCYTES % (AUTO) 34.4 %; MEAN CORPUSCULAR HEMOGLOBIN 32.9 pg (27.0-31.0); MEAN PLATELET VOLUME 8.5 fL (7.9-10.8); MONOCYTES # (AUTO) 0.5 10^3/uL (0.0-1.0); MONOCYTES % (AUTO) 9.3 %; NEUTROPHILS # (AUTO) 2.8 10^3/uL (1.5-6.6); NEUTROPHILS % (AUTO) 50.9 %; PLT - PLATELET COUNT 275 10^3/uL (130-450); RED BLOOD COUNT 4.34 10^6/uL (4.20-5.40); RED CELL DISTRIBUTION WIDTH 12.3 % (12.0-15.0); WHITE BLOOD COUNT 5.4 x10^3/uL (4.8-10.8)
[2021-04-23 09:15] LABS: ALBUMIN 4.7 g/dL (3.2-5.5); ALBUMIN/GLOBULIN RATIO 1.7 (1.0-2.2); ALKALINE PHOSPHATASE 40 IU/L (42-121); ALT ALANINE AMINOTRANSFERASE 21 IU/L (10-60); AST ASPARTATE AMINOTRANSFERASE 26 IU/L (10-42); BILIRUBIN,TOTAL 1.8 mg/dL (0.2-1.0); BUN - BLOOD UREA NITROGEN 16 mg/dL (6-20); CALCIUM 9.7 mg/dL (8.5-10.3); CARBON DIOXIDE - CO2 28 mmol/L (21-32); CHLORIDE 96 mmol/L (101-111); CHOL/HDL RATIO 2.8 (<4.4); CHOLESTEROL 277 mg/dL; CREATININE 0.7 mg/dL (0.4-1.0); GFR - MDRD 81 (>89); GLUCOSE 114 mg/dL (70-100); HDL CHOLESTEROL 98 mg/dL; LDL CHOLESTEROL,CALCULATED 168 mg/dL; LDL/HDL RATIO 1.7 (<4.4); POTASSIUM 4.6 mmol/L (3.5-5.0); SODIUM 136 mmol/L (135-145); TOTAL PROTEIN 7.5 g/dL (6.7-8.2); TRIGLYCERIDES 54 mg/dL; VLDL CHOLESTEROL 11 mg/dL
== END 2021-04-23 08:40 | disposition home or self-care (01) ==
LOC: LAB 08:39
PROVIDERS: ATTEND Physician Assistant Medical
DX: E78.2 Mixed hyperlipidemia (principal); R73.9 Hyperglycemia, unspecified; I10 Essential (primary) hypertension
CPT/HCPCS: 36415; 80053; 80061; 83721; 85025

== ENCOUNTER 2021-05-13 14:53 | Outpatient (CLI) | payer MEDICARE ==
[2021-05-13 15:13] LABS: BASOPHILS # (AUTO) 0.1 10^3/uL (0.0-0.1); EOSINOPHILS # (AUTO) 0.2 10^3/uL (0.0-0.7); EOSINOPHILS % (AUTO) 3.1 %; HCT - HEMATOCRIT 39.4 % (37.0-47.0); HGB - HEMOGLOBIN 13.4 g/dL (12.0-16.0); LYMPHOCYTES # (AUTO) 2.2 10^3/uL (1.5-3.5); MEAN CORPUSCULAR HEMOGLOBIN 32.4 pg (27.0-31.0); MEAN CORPUSCULAR VOLUME 95.2 fL (81.0-99.0); MEAN PLATELET VOLUME 8.3 fL (7.9-10.8); MONOCYTES # (AUTO) 0.5 10^3/uL (0.0-1.0); MONOCYTES % (AUTO) 7.6 %; NEUTROPHILS # (AUTO) 3.9 10^3/uL (1.5-6.6); NEUTROPHILS % (AUTO) 56.2 %; PLT - PLATELET COUNT 279 10^3/uL (130-450); RED BLOOD COUNT 4.14 10^6/uL (4.20-5.40); RED CELL DISTRIBUTION WIDTH 11.9 % (12.0-15.0)
[2021-05-13 15:39] LABS: ALBUMIN 4.6 g/dL (3.2-5.5); ALBUMIN/GLOBULIN RATIO 1.5 (1.0-2.2); ALKALINE PHOSPHATASE 42 IU/L (42-121); ALT ALANINE AMINOTRANSFERASE 27 IU/L (10-60); AST ASPARTATE AMINOTRANSFERASE 28 IU/L (10-42); BILIRUBIN,TOTAL 1.2 mg/dL (0.2-1.0); BUN - BLOOD UREA NITROGEN 12 mg/dL (6-20); CALCIUM 9.5 mg/dL (8.5-10.3); CARBON DIOXIDE - CO2 28 mmol/L (21-32); CHLORIDE 95 mmol/L (101-111); CREATININE 0.6 mg/dL (0.4-1.0); GFR - MDRD 97 (>89); GLUCOSE 96 mg/dL (70-100); POTASSIUM 4.1 mmol/L (3.5-5.0); SODIUM 134 mmol/L (135-145); TOTAL PROTEIN 7.6 g/dL (6.7-8.2)
[2021-05-13 15:51] LABS: THYROID STIMULATING HORMONE 2.4 uIU/mL (0.34-5.60)
[2021-05-13 16:10] LABS: CRP - C-REACTIVE PROTEIN < 1.0 mg/dL (0-1.0)
== END 2021-05-13 14:54 | disposition home or self-care (01) ==
LOC: LAB 14:53
PROVIDERS: ATTEND Physician Assistant Medical
DX: R42 Dizziness and giddiness (principal); R20.2 Paresthesia of skin
CPT/HCPCS: 36415; 80053; 82607; 84443; 85025; 85651; 86140

== ENCOUNTER 2021-06-01 13:14 | Outpatient (CLI) | payer MEDICARE ==
[2021-06-01] MEDS ORDERED: GADOBUTROL 7.5 MMOL/7.5 ML VIAL ONE (13:58)
[2021-06-01] MEDS ORDERED: GADOBUTROL 7.5 MMOL/7.5 ML VIAL IVP ONE (14:00)
--- NOTE | 2021-06-01 15:21 | MRI Report ---
PROCEDURE: Brain W/WO INDICATIONS: LIGHTHEADEDNESS, PARESTHESIA CONTRAST: IV CONTRAST: Gadavist ml: 5.7 TECHNIQUE: Noncontrast axial T1 spin echo, axial T2 fast spin echo, sagittal and axial FLAIR, coronal T2 fast sp in echo, axial gradient echo, axial diffusion and ADC through the brain. After the administration of contrast, axial and coronal T1 spin echo with fat saturation through the brain. COMPARISON: None. FINDINGS: Image quality: Motion artifact is noted. CSF spaces: Basal cisterns are patent. No extra-axial fluid collections. Ventricles are normal in size and shape. Brain: No midline shift. No intracranial bleeds or masses. No abnormal intracranial enhancement. There is cerebral volume loss for age. There is periventricular white matter chronic small vessel is chemic change. The brainstem appears normal. Diffusion-weighted images demonstrate no acute ischemi c insults. No chronic ischemic insults. Normal intravascular flow voids are present. Skull and face: Areas of calvarial thinning can be seen on both sides posteriorly, as on series 901 i mage 19. Calvarial marrow is normal in signal. Orbits appear normal. Incidental note is made of bi lateral lens replacements. Sinuses: Sinuses and mastoids appear clear. IMPRESSION: No imaging explanation is found for the patient's presenting symptoms. No masses or abnormal enhancement can be seen. Areas of calvarial thinning can be seen on both sides posteriorly. Please correlate with prior surgic al history. Incidental note is made of: Brain parenchymal volume loss and chronic small vessel ischemic change Bilateral lens replacements Reviewed by: Abraham Moss MD on 06/01/2021 2:19 PM AKDT Approved by: Abraham Moss MD on 06/01/2021 2:19 PM AKDT Station ID: [id number]
--- NOTE | 2021-06-01 17:06 | Ultrasound Report ---
PROCEDURE: Carotid Doppler Complete INDICATIONS: LIGHTHEADEDNESS,PARESTHESIA TECHNIQUE: Color and pulse Doppler interrogation was performed of both carotid systems, with image documentation and velocity measurements. COMPARISON: 12/29/2018 FINDINGS: Right side: Brachial blood pressure: 137/66 mm Hg. Common carotid artery peak systolic velocity: 87 cm/sec. Internal carotid artery peak systolic velocity: 83 cm/sec. Internal carotid artery end diastolic velocity: 24 cm/sec. External carotid artery peak systolic velocity: 86 cm/sec. ICA/CCA peak systolic ratio: 1.0 . Sutton scale imaging description: Mild plaque at the bifurcation Percent internal carotid artery stenosis: Less than 50%, unchanged . Vertebral artery: Flow direction is antegrade. Left side: Brachial blood pressure: 132/71 mm Hg. Common carotid artery peak systolic velocity: 82 cm/sec. Internal carotid artery peak systolic velocity: 72 cm/sec. Internal carotid artery end diastolic velocity: 24 cm/sec. External carotid artery peak systolic velocity: 86 cm/sec. ICA/CCA peak systolic ratio: 0.9 . Sutton scale imaging description: Mild plaque at the bifurcation Percent internal carotid artery stenosis: Less than 50%, unchanged . Vertebral artery: Flow direction is antegrade. IMPRESSION: Less than 50% stenosis of the internal carotid arteries, stable compared to 12/29/2018. The estimate of stenosis included in the report of the imaging study was calculated using the NASCET method Reviewed by: Briseida Finnegan MD on 06/01/2021 5:04 PM PDT Approved by: Briseida Finnegan MD on 06/01/2021 5:04 PM PDT Station ID: [id number]
[2021-06-02] MEDS ORDERED: GADOBUTROL 7.5 MMOL/7.5 ML VIAL IVP ONE (07:56)
== END 2021-06-01 13:15 | disposition home or self-care (01) ==
LOC: DI 13:14
PROVIDERS: ATTEND Physician Assistant Medical
DX: R42 Dizziness and giddiness (principal); R20.9 Unspecified disturbances of skin sensation; G60.9 Hereditary and idiopathic neuropathy, unspecified
CPT/HCPCS: 70553; 93880; A9585

== ENCOUNTER 2021-06-15 06:18 | Outpatient (CLI) | payer MEDICARE | END 2021-06-15 06:19 | disposition critical access hospital (66) | LOC: EMS 06:18 | DX: R42 Dizziness and giddiness (principal) | CPT/HCPCS: A0425; A0427 ==

== ENCOUNTER 2021-06-15 06:36 | Emergency (ER) | payer MEDICARE ==
[2021-06-15] MEDS ORDERED: SODIUM CHLORIDE 0.9% 500 ML IV STA (06:53)
[2021-06-15] MEDS ORDERED: METOCLOPRAMIDE 10 MG/2 ML VIAL IVP STA (06:53)
[2021-06-15] MEDS ORDERED: MECLIZINE 12.5 MG TABLET PO STA ×2 (06:54→11:04)
[2021-06-15] MEDS ORDERED: SODIUM CHLORIDE 0.9% 1,000 ML IV STA (07:03)
[2021-06-15] MEDS ORDERED: diltiaZEM INJ 5 MG/ML VIAL IVP STA (07:04)
[2021-06-15 07:29] LABS: BASOPHILS % (AUTO) 0.6 %; EOSINOPHILS # (AUTO) 0.1 10^3/uL (0.0-0.7); HCT - HEMATOCRIT 39.4 % (37.0-47.0); HGB - HEMOGLOBIN 13.7 g/dL (12.0-16.0); LYMPHOCYTES # (AUTO) 1.3 10^3/uL (1.5-3.5); MEAN CORPUSCULAR HEMOGLOBIN 32.2 pg (27.0-31.0); MEAN CORPUSCULAR HGB CONC 34.8 g/dL (32.0-36.0); MEAN CORPUSCULAR VOLUME 92.7 fL (81.0-99.0); MONOCYTES # (AUTO) 0.3 10^3/uL (0.0-1.0); MONOCYTES % (AUTO) 5.4 %; NEUTROPHILS # (AUTO) 4.6 10^3/uL (1.5-6.6); NEUTROPHILS % (AUTO) 72.5 %; PLT - PLATELET COUNT 296 10^3/uL (130-450); RED BLOOD COUNT 4.25 10^6/uL (4.20-5.40); RED CELL DISTRIBUTION WIDTH 11.9 % (12.0-15.0); WHITE BLOOD COUNT 6.3 x10^3/uL (4.8-10.8)
[2021-06-15] MEDS ORDERED: diazePAM INJ 5 MG/ML SYRINGE IVP STA (07:33)
[2021-06-15] MEDS ORDERED: ONDANSETRON 4 MG/2 ML VIAL IVP STA (07:33)
[2021-06-15] MEDS ORDERED: KETOROLAC 30 MG/ML VIAL IVP STA (07:34)
[2021-06-15 07:36] LABS: ALBUMIN 4.6 g/dL (3.2-5.5); ALBUMIN/GLOBULIN RATIO 1.6 (1.0-2.2); BILIRUBIN,TOTAL 2.6 mg/dL (0.2-1.0); CALCIUM 9.1 mg/dL (8.5-10.3); CREATININE 0.5 mg/dL (0.4-1.0); POTASSIUM 3.3 mmol/L (3.5-5.0); TOTAL PROTEIN 7.5 g/dL (6.7-8.2)
--- NOTE | 2021-06-15 07:39 | ED Physician Documentation ---
History of Present Illness - Stated complaint Stated Complaint: VERTIGO - Chief complaint Chief Complaint: Neuro - History obtained from History obtained from: Patient - Additonal information Additional information: Patient comes emergency department chief complaint of dizziness. She states she feels a spinning sensation every time she turns her head, especially to the left, or sits up. She states the symptoms have been going on intermittently for the last 3 weeks and that she has seen her primary provider, ABI Deal, already regarding this. She has had blood work, as well as MRI of the brain and ultrasound the carotid arteries, all of which have been unremarkable. She denies any other focal neurologic deficits except for a vague, intermittent sense of numbness in her left body which is not present right now. Patient states that she came in today because she has had worsening vertigo over the last couple of days and right now, she feels dizzy even if she is just sitting in bed. She is also been vomiting for the last approximately 12 hours and cannot keep anything down. Patient denies any chest pain or shortness of breath. She denies any palpitations or sense of heart pounding. She has no prior cardiac diagnosis that she knows of, though she does have hypertension. Patient states that other than the hypertension, she just has aches and pains and has had both hips replaced. No other complaints at this time. No recent head injury or illness. No tinnitus. Review of Systems Ten Systems: 10 systems reviewed and negative Constitutional: reports: Reviewed and negative Eyes: reports: Reviewed and negative Ears: reports: Reviewed and negative Nose: reports: Reviewed and negative Throat: reports: Reviewed and negative Cardiac: reports: Reviewed and negative Respiratory: reports: Reviewed and negative GI: reports: Reviewed and negative : reports: Reviewed and negative Skin: reports: Reviewed and negative Musculoskeletal: reports: Reviewed and negative Neurologic: reports: Headache, Other (Vertigo) Psychiatric: reports: Reviewed and negative Endocrine: reports: Reviewed and negative Immunocompromised: reports: Reviewed and negative PD PAST MEDICAL HISTORY - Past Medical History Past Medical History: Yes Cardiovascular: Hypertension, High cholesterol Respiratory: None Neuro: None Endocrine/Autoimmune: None GI: None 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 Acidophilus/L. Rhamnosus 1 each PO DAILY 12/07/18 12/07/18 [Probiotic 15 Billion Cell Cap] Aspirin 325 mg PO DAILY 12/26/18 12/26/18 Bisacodyl Supp [Dulcolax Supp] 10 mg NM Q12H PRN #10 supp 12/29/18 Senna [Senokot] 17.2 mg PO Q12H PRN #30 tablet 12/29/18 Walker [Ultra-Light Rollator] 1 each MC DAILY #1 each 12/29/18 oxyCODONE [Roxicodone] 5 mg PO Q4HR PRN #20 tablet 12/29/18 Meclizine [Antivert] 25 mg PO Q6H PRN #30 tablet 06/15/21 Ondansetron Odt [Zofran] 4 mg TL Q6H PRN #10 tablet 06/15/21 - Allergies Allergies/Adverse Reactions: Allergies Allergy/AdvReac Type Severity Reaction Status Date / Time caffeine Allergy Unknown Verified 06/15/21 06:46 - Social History Does the pt smoke?: No Smoking Status: Never smoker Does the pt drink ETOH?: Yes Does the pt have substance abuse?: No - Immunizations Immunizations are current?: Yes - POLST Patient has POLST: No PD ED PE NORMAL - Vitals Vital signs reviewed: Yes - General General: Alert and oriented X 3, No acute distress, Well developed/nourished - HEENT HEENT: Atraumatic, PERRL, EOMI, Moist mucous membranes - Neck Neck: Supple, no meningeal sign - Cardiac Cardiac: No murmur, Strong equal pulses, Other (Irregular rate and rhythm, moderate tachycardia) - Respiratory Respiratory: No respiratory distress, Clear bilaterally - Abdomen Abdomen: Soft, Non distended, Other (Slight right upper quadrant tenderness, no rebound or guarding. Intermittent, infrequent heaving with small amount of vomitus.) - Derm Derm: Normal color, Warm and dry, No rash - Extremities Extremities: No deformity, No edema - Neuro Neuro: Alert and oriented X 3, clinical informatics director 2-12 intact, No motor deficit, No sensory deficit, Normal speech, Other (No nystagmus) - Psych Psych: Normal mood, Normal affect Results - Vitals Vitals: Oxygen O2 Source [With Activity] Room air O2 Source [Without Activity] Room air O2 Source Room air - EKG (time done) 0648 Rate: Rate (enter#) (77) Rhythm: Atrial fibrillation [place]: Normal QRS: Normal Ischemia: ST depression Compare to prior EKG: Old EKG unavailable Computer interpretation: Disagree with computer (True ST depressions in V4-5 only. ) No standard instances Rate: Rate (enter#) (normal) Rhythm: NSR [place]: Normal Intervals: Normal [place] QRS: Normal Ischemia: Normal ST segments. No: T wave inversion Compare to prior EKG: Changed from prior EKG (Earlier in same visit. A. fib resolved. No ST changes.) Computer interpretation: Agree with computer - Labs Labs: Laboratory Tests 06/15/21 06/15/21 06/15/21 07:16 07:16 07:16 WBC 6.3 RBC 4.25 Hgb 13.7 Hct 39.4 MCV 92.7 MCH 32.2 H MCHC 34.8 RDW 11.9 L Plt Count 296 MPV 9.0 Neut # (Auto) 4.6 Lymph # (Auto) 1.3 L [place] # (Auto) 0.3 Eos # (Auto) 0.1 Baso # (Auto) 0.0 Absolute Nucleated RBC 0.00 Nucleated RBC % 0.0 PT INR Sodium 134 L Potassium 3.3 L Chloride 101 Carbon Dioxide 20 L Anion Gap 13.0 BUN 14 Creatinine 0.5 Estimated GFR (MDRD) 120 Glucose 145 H Calcium 9.1 Total Bilirubin 2.6 H AST 27 ALT 23 Alkaline Phosphatase 34 L Troponin I High Sens 3.3 Total Protein 7.5 Albumin 4.6 Globulin 2.9 Albumin/Globulin Ratio 1.6 Lipase 35 06/15/21 06/15/21 08:36 09:59 WBC RBC Hgb Hct MCV MCH MCHC RDW Plt Count MPV Neut # (Auto) Lymph # (Auto) [place] # (Auto) Eos # (Auto) Baso # (Auto) Absolute Nucleated RBC Nucleated RBC % PT 12.8 H INR 1.1 Sodium Potassium Chloride Carbon Dioxide Anion Gap BUN Creatinine Estimated GFR (MDRD) Glucose Calcium Total Bilirubin AST ALT Alkaline Phosphatase Troponin I High Sens 3.9 Total Protein Albumin Globulin Albumin/Globulin Ratio Lipase PD MEDICAL DECISION MAKING - ED course Complexity details: reviewed results, re-evaluated patient, considered differential, d/w patient ED course: The patient was treated with Zofran, Valium, and IV fluids for her vertigo and nausea. The patient was found on the monitor, exam and EKG to be in atrial fibrillation with RVR, With a heart rate around 120. I ordered a dose of Cardi zem for this, but before the pt could receive it, she spontaneously converted. She had already had brain imaging with MRI for the same issue of vertigo within the last couple of weeks, and had had no trauma or new symptoms, and I did not feel that a repeat imaging study was indicated. Pt was found to be feeling a little better, nausea-pitts, but still had some vertigo. She was given an oral dose of meclizine. Work-up, including 2 troponins, was negative. PT was stable for d/c home. We have discussed symptomatic management at home, as well as the usual indications for return. Departure - Departure Disposition: 01 Home, Self Care Clinical Impression: Paroxysmal atrial fibrillation Benign positional vertigo Qualifiers: Laterality: unspecified laterality Qualified Code(s): H81.10 - Benign paroxysmal vertigo, unspecified ear Condition: Stable Instructions: ED Paroxysmal Atrial Flutter, ED BPV Vertigo Prescriptions: Meclizine [Antivert] 25 mg PO Q6H PRN #30 tablet PRN Reason: Vertigo Ondansetron Odt [Zofran] 4 mg TL Q6H PRN #10 tablet PRN Reason: Nausea / Vomiting Discharge Date/Time: 06/15/21 11:36
[2021-06-15 08:55] LABS: INR 1.1 (0.8-1.2); PT - PROTHROMBIN TIME 12.8 secs (9.9-12.6)
[2021-06-15 10:54] VITALS: BP 128/70
== END 2021-06-15 11:36 | disposition home or self-care (01) ==
LOC: EDUNIT# → SUPCPDRO 06:36 → ED 06:36
DX: H81.10 Benign paroxysmal vertigo, unspecified ear (principal); I48.0 Paroxysmal atrial fibrillation; I10 Essential (primary) hypertension
CPT/HCPCS: 36415; 80053; 83690; 84484; 85025; 85610; 93005; 96361; 96374; 96375; 99284; 99285; A9270; J2765

== ENCOUNTER 2021-06-18 12:10 | Outpatient (CLI) | payer MEDICARE ==
--- NOTE | 2021-06-18 15:15 | XRAY Report ---
PROCEDURE: Lumbar Spine 2 View INDICATIONS: PARESTHESIA TECHNIQUE: 3 views of the lumbar spine were acquired. COMPARISON: None. FINDINGS: Bones: 5 [id number] vertebrae are present. There is grade 1 anterolisthesis of L4 on L5 and L5 on S1. Degenerative endplate changes and bilateral facet arthrosis throughout lumbar spine are seen most prominent at L4-5 level.. No vertebral body compression fractures. No suspicious bony lesions. There is prior bilateral hip arthroplasty. Soft tissues: Overlying bowel gas pattern is normal. No suspicious soft tissue calcifications. IMPRESSION: Degenerative disc disease throughout lumbar spine more prominent in lower lumbar spine a s above. Grade 1 anterolisthesis at L4-5 and L5-S1 levels. No acute compression fracture. Reviewed by: Zheng Rivas MD on 06/18/2021 3:14 PM PDT Approved by: Zheng Rivas MD on 06/18/2021 3:14 PM PDT Station ID: [id number]
== END 2021-06-18 12:11 | disposition home or self-care (01) ==
LOC: DI.S 12:10 → DI 12:11
PROVIDERS: ATTEND Physician Assistant Medical
DX: R20.2 Paresthesia of skin (principal); M51.36 Other intervertebral disc degeneration, lumbar region

== ENCOUNTER 2021-07-10 19:51 | Outpatient (CLI) | payer MEDICARE | END 2021-07-10 19:52 | disposition EMS.NT | LOC: EMS 19:51 | DX: R10.9 Unspecified abdominal pain (principal) ==

== ENCOUNTER 2021-07-13 13:46 | Outpatient (CLI) | payer MEDICARE ==
--- NOTE | 2021-07-13 16:25 | MRI Report ---
PROCEDURE: Lumbar Spine W/O INDICATIONS: PARESTHESIA TECHNIQUE: Noncontrast sagittal T1 spin echo and T2 fast echo, sagittal STIR, axial T1 and T2 fast spin echo thr ough the lumbar spine. In cases with scoliosis, additional coronal T2 fast spin echo may be performe d. COMPARISON: Correlation is made with plain film, 06/18/2021. FINDINGS: Image quality: Motion artifact is noted. Alignment and Curvature: There is minimal L4-L5 and L5-S1 anterolisthesis. Bone Marrow: Marrow is of normal overall signal. No acute vertebral body compression fractures. Ap proximately 10% anterior wedge deformity can be seen of T11, without acute features. Spinal Cord: Conus medullaris terminates at the L1-L2 level. Visualized cord demonstrates normal si gnal and size. Paraspinous Soft Tissues: No paravertebral masses. T11-T12: Moderate loss of disc height and signal are seen. Mild disc bulge is seen. There is mild right-sided and moderate left-sided neuroforaminal narrowing seen. The central canal is widely tamayo nt. T12-L1: No significant abnormality is seen. L1-L2: The disc height is well-preserved. There is loss of disc signal seen. Mild disc bulge is s een. Mild bilateral neural foraminal narrowing is seen. No significant central canal narrowing is seen. L2-L3: The disc height is well-preserved. There is loss of disc signal seen. Mild to moderate disc bulge is seen. There is mild right-sided and mild to moderate left-sided neuroforaminal narrowing se en. No central canal narrowing is seen. L3-L4: The disc height is well-preserved. There is loss of disc signal seen. Moderate disc bulge is seen, which is eccentric to the right. Moderate facet hypertrophy is seen. Moderate bilateral neur oforaminal narrowing is seen, left worse than right. Mild central canal narrowing is seen. L4-L5: The disc height is well-preserved. There is loss of disc signal seen. Moderate disc bulge is seen, which is eccentric to the right side. At least moderate facet hypertrophy is seen. Fluid is se en within the facet joints themselves. There is at least moderate bilateral neuroforaminal narrowing seen, right worse than left. Compression is seen upon the exiting nerve roots. Moderate central ca nal narrowing is seen. L5-S1: The disc height is well-preserved. There is loss of disc signal seen. Mild disc bulge is seen. Moderate to prominent facet hypertrophy can be seen. There is at least moderate bilateral neur oforaminal narrowing seen, right worse than left. Compression is seen upon the exiting nerve roots. Minimal central canal narrowing is seen. IMPRESSION: Multiple levels of lumbar spine degenerative change are seen, which are overall worst in feriorly. Reviewed by: Abraham Moss MD on 07/13/2021 3:24 PM [place] Approved by: Abraham Moss MD on 07/13/2021 3:24 PM [facility] Station ID: [id number]
== END 2021-07-13 13:47 | disposition home or self-care (01) ==
LOC: DI 13:46
PROVIDERS: ATTEND Physician Assistant Medical
DX: R20.9 Unspecified disturbances of skin sensation (principal); M48.02 Spinal stenosis, cervical region; M48.061 Spinal stenosis, lumbar region without neurogenic claudication; M47.816 Spondylosis without myelopathy or radiculopathy, lumbar region; M47.817 Spondylosis without myelopathy or radiculopathy, lumbosacral region; M48.07 Spinal stenosis, lumbosacral region

== ENCOUNTER 2021-10-26 12:36 | Outpatient (CLI) | payer MEDICARE, OTHER | END 2021-10-26 12:37 | disposition home or self-care (01) | LOC: DI 12:36 | PROVIDERS: ATTEND Physician Assistant Medical | DX: I48.0 Paroxysmal atrial fibrillation (principal) | CPT/HCPCS: 93306 ==

== ENCOUNTER 2021-11-24 08:06 | Outpatient (CLI) | payer MEDICARE, OTHER ==
[2021-11-24 08:23] LABS: BASOPHILS # (AUTO) 0.1 10^3/uL (0.0-0.1); BASOPHILS % (AUTO) 0.9 %; EOSINOPHILS # (AUTO) 0.2 10^3/uL (0.0-0.7); EOSINOPHILS % (AUTO) 3.9 %; HCT - HEMATOCRIT 37.5 % (37.0-47.0); HGB - HEMOGLOBIN 12.7 g/dL (12.0-16.0); LYMPHOCYTES # (AUTO) 1.6 10^3/uL (1.5-3.5); LYMPHOCYTES % (AUTO) 30.1 %; MEAN CORPUSCULAR HEMOGLOBIN 32.2 pg (27.0-31.0); MEAN CORPUSCULAR HGB CONC 33.9 g/dL (32.0-36.0); MEAN CORPUSCULAR VOLUME 94.9 fL (81.0-99.0); MEAN PLATELET VOLUME 8.8 fL (7.9-10.8); MONOCYTES # (AUTO) 0.5 10^3/uL (0.0-1.0); MONOCYTES % (AUTO) 8.4 %; NEUTROPHILS % (AUTO) 56.5 %; PLT - PLATELET COUNT 268 10^3/uL (130-450); RED BLOOD COUNT 3.95 10^6/uL (4.20-5.40); RED CELL DISTRIBUTION WIDTH 12.3 % (12.0-15.0); WHITE BLOOD COUNT 5.4 x10^3/uL (4.8-10.8)
[2021-11-24 09:08] LABS: ALBUMIN 4.4 g/dL (3.2-5.5); ALBUMIN/GLOBULIN RATIO 1.7 (1.0-2.2); ALKALINE PHOSPHATASE 38 IU/L (42-121); ALT ALANINE AMINOTRANSFERASE 34 IU/L (10-60); AST ASPARTATE AMINOTRANSFERASE 31 IU/L (10-42); BILIRUBIN,TOTAL 1.8 mg/dL (0.2-1.0); BUN - BLOOD UREA NITROGEN 19 mg/dL (6-20); CALCIUM 9.1 mg/dL (8.5-10.3); CARBON DIOXIDE - CO2 26 mmol/L (21-32); CHLORIDE 97 mmol/L (101-111); CHOL/HDL RATIO 2.9 (<4.4); CHOLESTEROL 230 mg/dL; CREATININE 0.6 mg/dL (0.4-1.0); GFR - MDRD 97 (>89); GLUCOSE 104 mg/dL (70-100); HDL CHOLESTEROL 79 mg/dL; LDL CHOLESTEROL,CALCULATED 142 mg/dL; LDL/HDL RATIO 1.8 (<4.4); POTASSIUM 4.4 mmol/L (3.5-5.0); SODIUM 131 mmol/L (135-145); TRIGLYCERIDES 46 mg/dL; VLDL CHOLESTEROL 9 mg/dL
== END 2021-11-24 08:07 | disposition home or self-care (01) ==
LOC: LAB 08:06
PROVIDERS: ATTEND Physician Assistant Medical
DX: I10 Essential (primary) hypertension (principal); E78.2 Mixed hyperlipidemia
CPT/HCPCS: 36415; 80053; 80061; 83721; 85025

== ENCOUNTER 2022-05-20 09:06 | Outpatient (CLI) | payer MEDICARE, OTHER ==
--- NOTE | 2022-05-20 14:38 | DEXA Report ---
PROCEDURE: Dexa Spine and/or Hip INDICATIONS: AFIB, POSTMENOPAUSAL TECHNIQUE: Dual energy x-ray absorptiometry (DXA) was performed on a Biogenic Reagents System. Regions measur ed are the AP Spine, and left forearm due to bilateral hip replacement. COMPARISON: 09/14/2019. FINDINGS: Lumbar Spine: Bone Mineral Density 0.841 g/cm/cm,T score -2.8. There is interval 2.6% increase in total lumbar s pine bone mineral density. Left forearm: Bone Mineral Density 0.580 g/cm/cm, T score -3.4. There is interval 2.7% increase in left forearm bon e mineral density. (T score greater or equal to -1.0: NORMAL) (T score from -1.1 to -2.4: OSTEOPENIA) (T score less than or equal to -2.5 to: OSTEOPOROSIS) Impression: Osteoporosis. Patients with diagnosis of osteoporosis or osteopenia should have regular bone mineral density assess ment. For those eligible for Medicare, routine testing is allowed once every 2 years. Testing frequ ency can be increased for patients who have rapidly progressing disease or for those who are receivin g medical therapy to restore bone mass. Reviewed by: Zheng Rivas MD on 05/20/2022 2:36 PM PDT Approved by: Zheng Rivas MD on 05/20/2022 2:36 PM PDT Station ID: [id number]
== END 2022-05-20 09:07 | disposition home or self-care (01) ==
LOC: DI 09:06
PROVIDERS: ATTEND Physician Assistant Medical
DX: I48.0 Paroxysmal atrial fibrillation (principal); M81.0 Age-related osteoporosis without current pathological fracture; Z96.643 Presence of artificial hip joint, bilateral; Z78.0 Asymptomatic menopausal state
CPT/HCPCS: 93306

== ENCOUNTER 2022-08-20 08:15 | Outpatient (CLI) | payer MEDICARE, OTHER ==
--- NOTE | 2022-08-24 13:01 | Mammography Report ---
BILATERAL DIGITAL SCREENING MAMMOGRAM 3D/2D: 08/20/2022 CLINICAL: Routine screening. Comparison is made to exams dated: 10/23/2020 mammogram, 09/14/2019 mammogram, 06/12/2018 mammogram, an d 05/26/2017 mammogram - [facility]. Both breasts are extremely dense, which lowers the sensitivity of mammography (category d />75% gland ular tissue). No significant masses, calcifications, or other findings are seen in either breast. There has been no significant interval change. IMPRESSION: NEGATIVE There is no mammographic evidence of malignancy. A 1 year screening mammogram is recommended. This exam was interpreted at Station ID: [id number]. NOTE: For mammograms, a report in lay terms will be sent to the patient. Approximately 15% of breast malignancies will not be visualized mammographically. In the management of a palpable breast mass, a negative mammogram must not discourage biopsy of a clinically suspicious lesion. Electronically Signed By: Jaswant Rodriguez M.D. aty/[email or web address]:08/20/2022 16:36:30 ACR BI-RADS Category 1: Negative 3341F PARENCHYMAL PATTERN: (VD) - The breast(s) demonstrate(s) extremely dense parenchyma, limiting the sen sitivity of mammography. BI-RADS CATEGORY: (1) - 1 RECOMMENDATION: (ANNUAL) - Recommend routine annual screening mammography. [id number] 1 year screening LATERALITY: (B)
== END 2022-08-20 08:16 | disposition home or self-care (01) ==
LOC: DI 08:15
DX: Z12.31 Encounter for screening mammogram for malignant neoplasm of breast (principal)

== ENCOUNTER 2022-10-04 08:19 | Outpatient (CLI) | payer MEDICARE, OTHER ==
[2022-10-04 08:55] LABS: ALBUMIN 4.2 g/dL (3.2-5.5); ALBUMIN/GLOBULIN RATIO 1.5 (1.0-2.2); ALKALINE PHOSPHATASE 39 IU/L (42-121); ALT ALANINE AMINOTRANSFERASE 21 IU/L (10-60); AST ASPARTATE AMINOTRANSFERASE 24 IU/L (10-42); BILIRUBIN,TOTAL 1.6 mg/dL (0.2-1.0); BUN - BLOOD UREA NITROGEN 15 mg/dL (6-20); CALCIUM 9.6 mg/dL (8.5-10.3); CARBON DIOXIDE - CO2 27 mmol/L (21-32); CHLORIDE 99 mmol/L (101-111); CHOL/HDL RATIO 2.7 (<4.4); CHOLESTEROL 222 mg/dL; CREATININE 0.7 mg/dL (0.4-1.0); GFR - MDRD 81 (>89); GLUCOSE 113 mg/dL (70-100); HDL CHOLESTEROL 82 mg/dL; LDL CHOLESTEROL,CALCULATED 130 mg/dL; LDL/HDL RATIO 1.6 (<4.4); POTASSIUM 4.3 mmol/L (3.5-5.0); SODIUM 136 mmol/L (135-145); TRIGLYCERIDES 50 mg/dL; VLDL CHOLESTEROL 10 mg/dL
== END 2022-10-04 08:20 | disposition home or self-care (01) ==
LOC: LAB 08:19
PROVIDERS: ATTEND Physician Assistant Medical
DX: E78.2 Mixed hyperlipidemia (principal)
CPT/HCPCS: 36415; 80053; 80061; 83721

== ENCOUNTER 2022-11-23 08:29 | Emergency (ER) | payer MEDICARE, OTHER ==
--- NOTE | 2022-11-23 08:50 | ED Physician Documentation ---
PD HPI SYNCOPE - Stated complaint Stated Complaint: DEHYDRATION/ PASSED OUT - Chief complaint Chief Complaint: Neuro - History obtained from History obtained from: Patient - History of Present Illness Witnessed: Unwitnessed Timing - onset: How many days ago (1 1/2 days ago (2 nights ago).) Preceding symptoms: Light headed, Generalized weakness. No: Chest pain, Abdominal pain, Nausea / vomiting Associated symptoms: No: Headache, Chest pain, Abdominal pain Contributing factors: Just stood up (she had gotten up during the night to go to bathroom. Urinated and stood up and felt lightheade, tried to hold herself up holding wall and then remembers being on ground. Awoke with small bruising and lac right lateral eyebrow.), Other (she has been feeling okay since. She describes occasional lightheaded with standing expecially during the night. No prior syncope. She does feel she drinks lots of fluids and urinates a good amount daily, but is concerned she was dehydrated.) Injury occurred: Head injury (bruise and small laceration right lateral eyebrow. No other apparent injury.) Similar symptoms before: No diagnosis (she has had episodes of lightheadedness with standing up or standing still. Not had it iwth exercise/activity. 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 Acidophilus/L. Rhamnosus 1 each PO DAILY 12/07/18 12/07/18 [Probiotic 15 Billion Cell Cap] Aspirin 325 mg PO DAILY 12/26/18 12/26/18 Bisacodyl Supp [Dulcolax Supp] 10 mg [place] Q12H PRN #10 supp 12/29/18 Senna [Senokot] 17.2 mg PO Q12H PRN #30 tablet 12/29/18 Walker [Ultra-Light Rollator] 1 each MC DAILY #1 each 12/29/18 oxyCODONE [Roxicodone] 5 mg PO Q4HR PRN #20 tablet 12/29/18 Meclizine [Antivert] 25 mg PO Q6H PRN #30 tablet 06/15/21 Ondansetron Odt [Zofran] 4 mg TL Q6H PRN #10 tablet 06/15/21 - Allergies Allergies/Adverse Reactions: Allergies Allergy/AdvReac Type Severity Reaction Status Date / Time caffeine Allergy Unknown Verified 11/23/22 08:46 - Social History Does the pt smoke?: No Smoking Status: Never smoker Does the pt drink ETOH?: Yes Does the pt have substance abuse?: No - Immunizations Immunizations are current?: Yes - POLST Patient has POLST: No PD ED PE NORMAL - Vitals Vital signs reviewed: Yes - General General: Alert and oriented X 3, No acute distress, Well developed/nourished - HEENT HEENT: PERRL, EOMI, Other (right lateral eyebrow area with small 1 cm laceration that has close edges and no FB nor bleeding. No pain with eye movement. ) - Neck Neck: No bruit - Cardiac Cardiac: RRR, No murmur - Respiratory Respiratory: Clear bilaterally, Other (no chestwall tenderness) - Abdomen Abdomen: Soft, Non tender - Derm Derm: Normal color, Warm and dry - Extremities Extremities: No tenderness to palpate, Normal ROM s pain, No edema, No calf tenderness / cord - Neuro Neuro: Alert and oriented X 3, No motor deficit, No sensory deficit Eye Opening: Spontaneous Motor: Obeys Commands Verbal: Oriented GCS Score: 15 Results - Vitals Vitals: Oxygen O2 Source [With Activity] Room air O2 Source [Without Activity] Room air O2 Source Room air - EKG (time done) 08:52 EKG releavant findings:: EKG personally interpreted by author of this note. Relevant findings are: Rate: Rate (enter#) (72) Rhythm: NSR [place]: Normal Intervals: Normal [place] QRS: Normal Ischemia: Normal ST segments. No: ST elevation c/w ischemia, ST depression - Labs Labs: Laboratory Tests 11/23/22 11/23/22 11/23/22 08:50 08:51 08:51 WBC 5.7 RBC 4.19 L Hgb 13.7 Hct 39.9 MCV 95.2 MCH 32.7 H MCHC 34.3 RDW 11.9 L Plt Count 319 MPV 9.0 Neut # (Auto) 3.8 Lymph # (Auto) 1.3 L [place] # (Auto) 0.5 Eos # (Auto) 0.1 Baso # (Auto) 0.0 Absolute Nucleated RBC 0.00 Nucleated RBC % 0.0 Sodium 135 Potassium 3.7 Chloride 100 L Carbon Dioxide 26 Anion Gap 9.0 BUN 15 Creatinine 0.7 Estimated GFR (MDRD) 81 L Glucose 111 H POC Whole Bld Glucose 107 H Calcium 9.5 Magnesium 1.8 Total Bilirubin 1.5 H AST 25 ALT 20 Alkaline Phosphatase 38 L Total Protein 7.2 Albumin 4.2 Globulin 3.0 Albumin/Globulin Ratio 1.4 Lipase 41 TSH 11/23/22 08:51 WBC RBC Hgb Hct MCV MCH MCHC RDW Plt Count MPV Neut # (Auto) Lymph # (Auto) [place] # (Auto) Eos # (Auto) Baso # (Auto) Absolute Nucleated RBC Nucleated RBC % Sodium Potassium Chloride Carbon Dioxide Anion Gap BUN Creatinine Estimated GFR (MDRD) Glucose POC Whole Bld Glucose Calcium Magnesium Total Bilirubin AST ALT Alkaline Phosphatase Total Protein Albumin Globulin Albumin/Globulin Ratio Lipase TSH 1.32 - Rads (name of study) head CT Relevant Findings:: Prelim report reviewed, EMP independent interpretation of test (no ICH nor acute changes. ), See rad report PD Medical Decision Making - ED course Complexity details: reviewed results (ECG is normal as its basic blood count, lytes, renal function. Head cT due to head injury/orbital area did not show any acute changes/bleeds. ), considered differential (postural syncope during the night going to the bathreoom. She sounds hydrated with good PO intake and normal urination. Most likely just age related less responsiveness of vessel tone and also with BP meds. Consider intermittent rhythm disturbance but would think that would be more random. ), d/w patient Departure - Departure Disposition: 01 Home, Self Care Clinical Impression: Periorbital contusion, Anticoagulant long-term use, Postural syncope Condition: Stable Record reviewed to determine appropriate education?: Yes Instructions: ED Fainting Unkn Cause Follow-Up: Radha Deal PA-C [Primary Care Provider] - Comments: Your CT scan is normal without any signs of bleeding or fractures within the head or eye socket tissues and no bleeding within the brain cavity. Your basic blood tests including blood counts electrolytes kidney function and thyroid screen are within normal limits. I do not think your particularly dehydrated based on your description of your fluid intake and urine output. There can be other factors that go along with feeling lightheaded with standing up. This will be particularly worse at night because of our dye urinal hormones etc. There is also the background effect of your blood pressure medicines which keep your blood vessels from responding to changes in posture as well as they ought to. Continue with your current hydration and diet and activities. Continue with your current method of just getting up and sitting for moment slowly before standing up and walking. I think you will be okay with that. Discharge Date/Time: 11/23/22 10:44
[2022-11-23 09:19] LABS: BASOPHILS % (AUTO) 0.5 %; EOSINOPHILS # (AUTO) 0.1 10^3/uL (0.0-0.7); EOSINOPHILS % (AUTO) 1.2 %; HCT - HEMATOCRIT 39.9 % (37.0-47.0); HGB - HEMOGLOBIN 13.7 g/dL (12.0-16.0); LYMPHOCYTES # (AUTO) 1.3 10^3/uL (1.5-3.5); LYMPHOCYTES % (AUTO) 22.9 %; MEAN CORPUSCULAR HEMOGLOBIN 32.7 pg (27.0-31.0); MEAN CORPUSCULAR HGB CONC 34.3 g/dL (32.0-36.0); MEAN CORPUSCULAR VOLUME 95.2 fL (81.0-99.0); MONOCYTES # (AUTO) 0.5 10^3/uL (0.0-1.0); MONOCYTES % (AUTO) 8.8 %; NEUTROPHILS # (AUTO) 3.8 10^3/uL (1.5-6.6); NEUTROPHILS % (AUTO) 66.4 %; PLT - PLATELET COUNT 319 10^3/uL (130-450); RED BLOOD COUNT 4.19 10^6/uL (4.20-5.40); RED CELL DISTRIBUTION WIDTH 11.9 % (12.0-15.0); WHITE BLOOD COUNT 5.7 x10^3/uL (4.8-10.8)
[2022-11-23 09:30] LABS: ALBUMIN 4.2 g/dL (3.2-5.5); ALBUMIN/GLOBULIN RATIO 1.4 (1.0-2.2); BILIRUBIN,TOTAL 1.5 mg/dL (0.2-1.0); CALCIUM 9.5 mg/dL (8.5-10.3); CREATININE 0.7 mg/dL (0.4-1.0); MAGNESIUM 1.8 mg/dL (1.7-2.8); POTASSIUM 3.7 mmol/L (3.5-5.0); TOTAL PROTEIN 7.2 g/dL (6.7-8.2)
[2022-11-23 09:36] VITALS: BP 138/87
--- NOTE | 2022-11-23 09:59 | CT Report ---
PROCEDURE: HEAD WO INDICATIONS: fall/syncope, struck face; on Xarelto TECHNIQUE: Noncontrast 4.5 mm thick angled axial sections acquired from the foramen magnum to the vertex. For r adiation dose reduction, the following was used: automated exposure control, adjustment of mA and/or kV according to patient size. COMPARISON: MRI brain 06/01/2021 FINDINGS: Image quality: Excellent. The ventricular system and cortical sulci demonstrate atrophy, consistent for patient's stated age. There are areas of hypodensity in the periventricular and subcortical white matter. There is no acut e intra or extra-axial fluid collection. No acute hemorrhage, mass lesion or midline shift. Brainst em is unremarkable. Globes are symmetrical. Sinuses are aerated. Osseous structures are intact. Left frontal scalp hemato ma. IMPRESSION: 1. No acute intracranial process. 2. Moderate atrophy and chronic microvascular ischemic changes. 3. Left frontal scalp hematoma. Reviewed by: Briseida Finnegan MD on 11/23/2022 9:57 AM PDT Approved by: Briseida Finnegan MD on 11/23/2022 9:57 AM PDT Station ID: [id number]
== END 2022-11-23 10:44 | disposition home or self-care (01) ==
LOC: ED 08:29
DX: S00.11XA Contusion of right eyelid and periocular area, initial encounter (principal); X58.XXXA Exposure to other specified factors, initial encounter; I10 Essential (primary) hypertension; Z79.01 Long term (current) use of anticoagulants
CPT/HCPCS: 36415; 80053; 83690; 83735; 84443; 85025; 93005; 99283; 99284

== ENCOUNTER 2023-01-21 13:54 | Outpatient (CLI) | payer MEDICARE, OTHER | END 2023-01-21 13:55 | disposition home or self-care (01) | LOC: MAC.MOP 13:54 | PROVIDERS: ATTEND Physician Assistant Medical | DX: I48.0 Paroxysmal atrial fibrillation (principal); R55 Syncope and collapse | CPT/HCPCS: 93246 ==

== ENCOUNTER 2023-02-10 14:53 | Outpatient (CLI) | payer MEDICARE, OTHER | END 2023-02-10 14:54 | disposition home or self-care (01) | LOC: MAC.INF 14:53 | PROVIDERS: ATTEND Physician Assistant Medical | DX: I47.1 Supraventricular tachycardia (principal); I47.20 Ventricular tachycardia, unspecified; I49.8 Other specified cardiac arrhythmias; I49.1 Atrial premature depolarization; I49.3 Ventricular premature depolarization | CPT/HCPCS: 93248 ==

== ENCOUNTER 2023-03-16 07:14 | Outpatient (CLI) | payer MEDICARE, OTHER ==
[2023-03-16 07:44] LABS: BASOPHILS # (AUTO) 0.1 10^3/uL (0.0-0.1); BASOPHILS % (AUTO) 1.1 %; EOSINOPHILS # (AUTO) 0.3 10^3/uL (0.0-0.7); EOSINOPHILS % (AUTO) 7.1 %; HCT - HEMATOCRIT 38.9 % (37.0-47.0); LYMPHOCYTES # (AUTO) 1.9 10^3/uL (1.5-3.5); LYMPHOCYTES % (AUTO) 39.5 %; MEAN CORPUSCULAR HEMOGLOBIN 32.1 pg (27.0-31.0); MEAN CORPUSCULAR HGB CONC 33.4 g/dL (32.0-36.0); MEAN PLATELET VOLUME 9.2 fL (7.9-10.8); MONOCYTES # (AUTO) 0.4 10^3/uL (0.0-1.0); NEUTROPHILS % (AUTO) 43.3 %; PLT - PLATELET COUNT 258 10^3/uL (130-450); RED BLOOD COUNT 4.05 10^6/uL (4.20-5.40); RED CELL DISTRIBUTION WIDTH 12.2 % (12.0-15.0); WHITE BLOOD COUNT 4.7 x10^3/uL (4.8-10.8)
[2023-03-16 07:45] LABS: ALBUMIN 4.5 g/dL (3.2-5.5); ALBUMIN/GLOBULIN RATIO 1.8 (1.0-2.2); ALKALINE PHOSPHATASE 43 IU/L (42-121); ALT ALANINE AMINOTRANSFERASE 20 IU/L (10-60); AST ASPARTATE AMINOTRANSFERASE 23 IU/L (10-42); BILIRUBIN,TOTAL 1.1 mg/dL (0.2-1.0); BUN - BLOOD UREA NITROGEN 14 mg/dL (6-20); CALCIUM 9.8 mg/dL (8.5-10.3); CARBON DIOXIDE - CO2 31 mmol/L (21-32); CHLORIDE 99 mmol/L (101-111); CHOL/HDL RATIO 3.1 (<4.4); CHOLESTEROL 230 mg/dL; CREATININE 0.7 mg/dL (0.6-1.3); GFR - MDRD 81 (>89); GLUCOSE 105 mg/dL (74-104); HDL CHOLESTEROL 74 mg/dL; LDL CHOLESTEROL,CALCULATED 144 mg/dL; LDL/HDL RATIO 1.9 (<4.4); POTASSIUM 4.1 mmol/L (3.5-4.5); SODIUM 135 mmol/L (135-145); TRIGLYCERIDES 59 mg/dL (48-352); VLDL CHOLESTEROL 12 mg/dL
== END 2023-03-16 07:15 | disposition home or self-care (01) ==
LOC: LAB 07:14
PROVIDERS: ATTEND Physician Assistant Medical
DX: D50.9 Iron deficiency anemia, unspecified (principal); E78.2 Mixed hyperlipidemia
CPT/HCPCS: 36415; 80053; 80061; 83721; 85025